=== PATIENT | female | born 1945 | race Caucasian/White ===

== ENCOUNTER 2020-05-29 07:19 | Emergency (ER) | payer MEDICARE, OTHER, SELFPAY ==
--- NOTE | ~2020-05-29 | CT_ITS ---
EXAMINATION: CT abdomen pelvis w con DATE: 05/29/2020 08:29 INDICATION: Area. Bloody stools. TECHNIQUE: Computed tomography (CT) of the abdomen and pelvis was performed with 100 mL Omnipaque-350 intravenous contrast. Automated exposure control and iterative reconstruction technique were employe d. The dose-length product was 1277.21 mGy-cm. COMPARISON: None FINDINGS: Minimal dependent atelectasis in the bilateral lower lobes as well as atelectasis in the left lower l obe along side the margins of a moderate-sized sliding-type hiatal hernia. There is wall thickening i n the distalmost esophagus consistent with likely reflux esophagitis. Heart size is normal. Small per icardial effusion. Liver, gallbladder, spleen, pancreas, bilateral adrenal glands and kidneys are nor mal. There is fluid throughout the colon and several loops of nondilated small bowel consistent with diarrhea. No abnormal bowel wall thickening or obstruction. The appendix is not visualized. No perice yony inflammatory change to suggest acute appendicitis. The uterus is not identified and has likely be en surgically resected. 2.9 cm left adnexal cyst. No free intraperitoneal gas or fluid. No pathologic ally enlarged abdominal or pelvic lymphadenopathy. Mild lumbar dextroscoliosis with severe spondylosi s. Old healed proximal left femoral fracture with antegrade intramedullary tracy and interlocking femor al neck screw fixation. IMPRESSION: 1. Fluid throughout the large and small bowel consistent with diarrhea without evident wall thickenin g or obstruction. Correlate clinically for gastroenteritis. 2. Moderate-sized sliding-type hiatal hernia with wall thickening the distal esophagus suggestive of reflux esophagitis. 3. Small pericardial effusion. Reviewed, dictated and finalized at location A. IMPRESSION: 1. Fluid throughout the large and small bowel consistent with diarrhea without evident wall thickening or obstruction. Correlate clinically for gastroenteriti s. 2. Moderate-sized sliding-type hiatal hernia with wall thickening the distal es ophagus suggestive of reflux esophagitis. 3. Small pericardial effusion.
[2020-05-29 07:19] VITALS: BP 142/98; PULSE 105; RESP 20; TEMP 36.9; O2SAT 100
--- NOTE | 2020-05-29 07:30 | ED.NAVMDI ---
HPI - Nausea/Vomiting/Diarrhea General Chief complaint: Nausea/Vomiting/Diarrhea Stated complaint: DIARRHEA History of Present Illness HPI Narrative: She reports abnormal stools for the past month. Both soft and hard stools. Diarrhea for about the past week. long term staff told her that she had some bright red blood in her stool last. She is not able to quantify. She does report some rectal pain/irritation from the frequent bowel movements. No abdominal pain, nausea, vomiting, fever, CP, SOB. She does not take any blood thinners. Related Data Home Medications Medication Instructions Recorded Confirmed acetaminophen 500 mg tablet 500 mg PO Q4H PRN 07/25/19 02/18/20 aspirin 81 mg tablet,delayed 81 mg PO DAILY 07/25/19 02/18/20 release buspirone 5 mg tablet 5 mg PO TID 07/25/19 02/18/20 calcium carbonate 500 mg (1,250 1 tablet PO BID 07/25/19 02/18/20 mg)-vitamin D3 125 unit tablet cholecalciferol (vitamin D3) 50 2,000 unit PO DAILY 07/25/19 02/18/20 mcg (2,000 unit) tablet diclofenac sodium 75 mg 75 mg PO BID 07/25/19 02/18/20 tablet,delayed release glucosamine-chondroitin 167 mg-133 cap PO 07/25/19 02/18/20 mg capsule mecobalamin (vitamin B12) 1,000 1,000 mcg SUBLINGUAL DAILY 07/25/19 02/18/20 mcg disintegrating tablet,sublingual pantoprazole 40 mg tablet,delayed 40 mg PO QAM 07/25/19 02/18/20 release raloxifene 60 mg tablet 60 mg PO DAILY 07/25/19 02/18/20 spironolactone 50 mg tablet 50 mg PO BID 07/25/19 02/18/20 bisacodyl 10 mg rectal suppository 10 mg RECTAL DAILY PRN 11/12/19 02/18/20 escitalopram oxalate 20 mg tablet 10 mg PO DAILY 11/12/19 02/18/20 ferrous sulfate 325 mg (65 mg 325 mg PO DAILY 11/12/19 02/18/20 iron) tablet lidocaine HCl 4 % topical cream 1 applic TOPICAL QID PRN 11/12/19 02/18/20 losartan 50 mg tablet 50 mg PO DAILY 11/12/19 02/18/20 menthol 4 % topical gel 1 applic TOPICAL TID PRN 11/12/19 02/18/20 polyethylene glycol 3350(bulk) each MISCELLANE 11/12/19 02/18/20 docusate sodium 100 mg capsule 100 mg PO DAILY 02/18/20 02/18/20 multivitamin 1 tablet PO DAILY 02/18/20 02/18/20 sennosides 8.6 mg tablet 8.6 mg PO BID 02/18/20 02/18/20 Allergies Allergy/AdvReac Type Severity Reaction Status Date / Time adhesive tape Allergy Severe BLISTER Verified 05/29/20 07:42 SKIN adhesive Allergy Unknown Erythema Verified 05/29/20 07:42 CYCLOBENZAPRINE HCL AdvReac Unknown CONFUSED, Uncoded 05/29/20 07:42 WEAK Review of Systems Review of Systems: All systems reviewed & are unremarkable except as noted in HPI and below Constitutional: Constitutional: Denies chills, Denies fever(s) and Denies weakness Cardiovascular: Cardiovascular: Denies chest pain Respiratory: Respiratory: Denies dyspnea Gastrointestinal: Gastrointestinal: Denies abdominal pain, Reports diarrhea, Denies nausea and Denies vomiting Musculoskeletal: Musculoskeletal: Denies back pain Neurologic: Denies numbness and Denies weakness PMFSH Past Medical History Medical History Abnormal finding of blood chemistry, unspecified Anxiety Benign essential hypertension Body mass index (BMI) 40.0-44.9, adult Chronic pain of right knee Encounter for Medicare annual wellness exam Encounter for routine adult health examination with abnormal findings Encounter for routine adult health examination without abnormal findings GERD (gastroesophageal reflux disease) Hearing loss Muscle weakness Obesity 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
[2020-05-29] MEDS: SODIUM CHLORIDE 0.9% IV 500 ML 999 ML IV CONT (07:43)
[2020-05-29 07:53] LABS: Basophils Percent Auto 0.3 % (0.2-1.2); Eosinophils Absolute Auto 0.1 K/mm3 (0-0.3); Eosinophils Percent Auto 1.3 % (0-4.4); Hematocrit 42.3 % (37.0-47.0); Hemoglobin 14.4 g/dL (12.0-15.0); Immature Granulocyte Absolute 0.03 K/mm3 (0.00-0.031); Immature Granulocyte Percent A 0.3 % (0-0.5); Lymphocytes Absolute Auto 0.71 K/mm3 (0.9-3.2); Lymphocytes Percent Auto 7.2 % (18.3-44.2); Mean Corpuscular Hemoglobin 32.8 pg (26-34); Mean Corpuscular Volume 96.4 fl (80-100); Mean Platelet Volume 10.8 fl (7.4-10.4); Monocytes Absolute Auto 0.8 K/mm3 (0.1-0.6); Monocytes Percent Auto 8.1 % (2.6-8.5); Neutrophils Absolute Auto 8.2 K/mm3 (1.3-6.7); Neutrophils Percent Auto 82.8 % (45.5-73.1); Platelet Count Result 225 k/mm3 (150-375); Red Blood Count 4.39 M/mm3 (4.2-5.4); Red Cell Distribution Width 12.2 % (11.5-14.5); White Blood Count 9.9 K/mm3 (4.5-10.0)
[2020-05-29 07:56] LABS: Add Urine Microscopic? YES; Appearance Urine Clear (Clear); Bacteria Urine 3+ /hpf; Bilirubin Urine Negative (Negative); Blood Urine Negative (Negative); Color Urine Yellow (Yellow); Glucose Urine UA Negative (Negative); Ketones Urine Negative (Negative); Leukocyte Esterase Ur Negative LEU/UL (Negative); Mucus Urine Rare /lpf; Nitrate Urine Positive (Negative); Protein Urine Negative (Negative); RBC Urine 0-2 /hpf (0-2); Specific Grav Ur 1.026 (1.001-1.035); Squamous Epithelial Cell Urine Rare /hpf (Few); Urobilinogen Urine Negative mg/dL (<2.0)
[2020-05-29 08:07] LABS: Alanine Aminotransferase 17 U/L (4-35); Albumin Level 4.4 g/dL (3.5-5.1); Alkaline Phosphatase 73 U/L (38-126); Anion Gap 8 mmol/L (8-16); Aspartate Amino Transferase 25 U/L (14-36); Bilirubin,Total 0.3 mg/dL (0.2-1.3); Blood Urea Nitrogen 20 mg/dL (7-17); Calcium 9.5 mg/dL (8.4-10.2); Carbon Dioxide 23 mmol/L (22-30); Chloride 107 mmol/L (98-107); Estimated CRCL calculation 71 ml/min; Estimated Glomerular Filt Rate > 60; Glucose 123 mg/dL (65-105); Lipase 43 U/L (23-300); Potassium 3.6 mmol/L (3.4-5.0); Sodium 138 mmol/L (137-145)
[2020-05-29 08:53] VITALS: BP 120/71; PULSE 92; RESP 15; O2SAT 95
[2020-05-29] MEDS: NITROFURANTOIN MONOHYD MACROCR 100 MG CAP PO (09:23)
[2020-05-29 09:52] VITALS: BP 128/87; PULSE 100; RESP 17; O2SAT 100
[2020-05-29 11:15] VITALS: BP 133/84; PULSE 92; RESP 15; O2SAT 96
[2020-05-29 12:17] VITALS: BP 128/87; PULSE 90; RESP 16; O2SAT 97
== END 2020-05-29 12:18 ==
PROVIDERS: Emergency Provider Emergency Medicine; PCP Internal Medicine
DX: R19.7 Diarrhea, unspecified (principal); N30.00 Acute cystitis without hematuria; K21.9 Gastro-esophageal reflux disease without esophagitis; I10 Essential (primary) hypertension; F41.9 Anxiety disorder, unspecified; M85.80 Other specified disorders of bone density and structure, unspecified site; Z79.82 Long term (current) use of aspirin
CPT/HCPCS: 36415; 51701; 74177; 80053; 81001; 83690; 85025; 86850; 86900; 86901; 96360; 99284; A9270; J7040; Q9967

== ENCOUNTER 2021-01-05 12:23 | Outpatient (CLI) | payer MEDICARE, OTHER, SELFPAY ==
[2021-01-05 13:08] LABS: Basophils Absolute Auto 0.1 K/mm3 (0.0-0.1); Basophils Percent Auto 0.8 % (0.2-1.2); Eosinophils Absolute Auto 0.1 K/mm3 (0-0.3); Eosinophils Percent Auto 1.8 % (0-4.4); Hematocrit 28.7 % (37.0-47.0); Immature Granulocyte Absolute 0.02 K/mm3 (0.00-0.031); Immature Granulocyte Percent A 0.3 % (0-0.5); Lymphocytes Absolute Auto 1.61 K/mm3 (0.9-3.2); Lymphocytes Percent Auto 24.2 % (18.3-44.2); Mean Corpuscular HGB Conc 31.4 g/dl (32-36); Mean Corpuscular Hemoglobin 32.3 pg (26-34); Mean Corpuscular Volume 102.9 fl (80-100); Mean Platelet Volume 9.5 fl (7.4-10.4); Monocytes Absolute Auto 0.6 K/mm3 (0.1-0.6); Monocytes Percent Auto 8.9 % (2.6-8.5); Neutrophils Absolute Auto 4.3 K/mm3 (1.3-6.7); Platelet Count Result 304 k/mm3 (150-375); Red Blood Count 2.79 M/mm3 (4.2-5.4); Red Cell Distribution Width 12.8 % (11.5-14.5); White Blood Count 6.7 K/mm3 (4.5-10.0)
[2021-01-05 13:21] LABS: Hemoglobin A1C 4.9 % (<5.7)
[2021-01-05 13:44] LABS: Alanine Aminotransferase 14 U/L (4-35); Albumin Level 3.7 g/dL (3.5-5.1); Alkaline Phosphatase 43 U/L (38-126); Anion Gap 5 mmol/L (8-16); Aspartate Amino Transferase 28 U/L (14-36); Bilirubin,Total 0.1 mg/dL (0.2-1.3); Blood Urea Nitrogen 21 mg/dL (7-17); Calcium 9.2 mg/dL (8.4-10.2); Carbon Dioxide 26 mmol/L (22-30); Chloride 106 mmol/L (98-107); Cholesterol 165 mg/dL (0-200); Estimated Glomerular Filt Rate > 60; Glucose 102 mg/dL (65-105); HDL Direct 54 mg/dL; Potassium 4.7 mmol/L (3.4-5.0); Sodium 137 mmol/L (137-145); Triglycerides 142 mg/dL (<150)
[2021-01-05 13:55] LABS: LDL Cholesterol Direct 87 mg/dL
[2021-01-05 14:13] LABS: Thyroid Stimulating Hormone 0.642 uIU/mL (0.465-4.680)
[2021-01-05 14:32] LABS: Free T4 Free Thyroxine 0.72 ng/mL (0.78-2.19)
[2021-01-05 14:49] LABS: Folic Acid > 20.0 ng/mL (2.76->20)
[2021-01-06 19:29] LABS: Iron 172 ug/dL (37-170)
[2021-01-06 19:38] LABS: Percent Iron Saturation 51 % (20-50)
[2021-01-08 19:40] LABS: Vitamin D 1,25 (OH)2 Total 31 pg/mL (18-72); Vitamin D2 1,25 (OH)2 <8 pg/mL; Vitamin D3 1,25 (OH)2 31 pg/mL
[2021-01-11 08:59] LABS: Triiodothyronine T3 Free 2.4 pg/mL (2.3-4.2)
== END 2021-01-05 12:24 | disposition home or self-care (01) ==
PROVIDERS: PCP Internal Medicine; Visit Provider Internal Medicine
DX: E55.9 Vitamin D deficiency, unspecified (principal); Z79.899 Other long term (current) drug therapy; E53.8 Deficiency of other specified B group vitamins; I10 Essential (primary) hypertension; D64.9 Anemia, unspecified; R94.6 Abnormal results of thyroid function studies
CPT/HCPCS: 36415; 80053; 80061; 82607; 82652; 82728; 82746; 83036; 83540; 83550; 84439; 84443; 84481; 85025

== ENCOUNTER 2021-01-19 01:57 | Day surgery (SDC) | payer MEDICARE, OTHER, SELFPAY ==
[2021-01-12 12:22] VITALS: BMI 44.5
--- NOTE | 2021-01-19 10:42 | WPDANESEPPF ---
Anes - Initial Pre Proc Eval Procedure: Operation Date: 01/19/21 11:45 Proposed Procedures p Esophagogastroduodenoscopy & Colonoscopy - Edgar Ricks MD Date/Time: 01/19/21 10:42 Surgeon: Edgar Ricks MD Pre Op Diagnosis: iron def anemia Patient Data Age: 75 Gender: F Height: 4 ft 11 in Weight: 100 kg Allergies Allergy/AdvReac Type Severity Reaction Status Date / Time adhesive tape Allergy Severe BLISTER Verified 01/05/21 11:34 SKIN adhesive Allergy Unknown Erythema Verified 01/05/21 11:34 Home Medications Medication Instructions Recorded Confirmed Type acetaminophen 500 mg tablet 1,000 mg PO BID 07/25/19 01/13/21 History aspirin 81 mg tablet,delayed 81 mg PO DAILY 07/25/19 01/13/21 History release cholecalciferol (vitamin D3) 50 2,000 unit PO DAILY 07/25/19 01/13/21 History mcg (2,000 unit) tablet glucosamine-chondroitin 167 mg-133 cap PO 07/25/19 01/05/21 History mg capsule mecobalamin (vitamin B12) 1,000 1,000 mcg SUBLINGUAL DAILY 07/25/19 01/13/21 History mcg disintegrating tablet,sublingual pantoprazole 40 mg tablet,delayed 40 mg PO QAM 07/25/19 01/13/21 History release raloxifene 60 mg tablet 60 mg PO DAILY 07/25/19 01/13/21 History losartan 50 mg tablet 50 mg PO DAILY 11/12/19 01/13/21 History polyethylene glycol 3350(bulk) each MISCELLANE 11/12/19 01/05/21 History docusate sodium 100 mg capsule 100 mg PO BID PRN 02/18/20 01/13/21 History multivitamin 1 tablet PO DAILY 02/18/20 01/13/21 History sennosides 8.6 mg tablet 8.6 mg PO BID PRN 02/18/20 01/13/21 History buspirone 5 mg tablet 5 mg PO BID tablet 08/25/20 01/13/21 History escitalopram oxalate 20 mg tablet 20 mg PO DAILY tablet 08/25/20 01/13/21 History spironolactone 50 mg tablet 50 mg PO DAILY tablet 08/25/20 01/13/21 History ferrous sulfate 325 mg (65 mg 325 mg PO DAILY #90 tablet 09/22/20 01/13/21 Rx iron) tablet mirabegron 50 mg tablet,extended 50 mg PO DAILY #90 tablet 01/05/21 01/13/21 Rx release 24 hr acetaminophen 650 mg PO Q4H PRN 01/13/21 01/13/21 History alprazolam 0.25 mg PO BID PRN 01/13/21 01/13/21 History benzonatate 100 mg PO Q6H PRN 01/13/21 01/13/21 History calcium carbonate-vitamin D3 1 tablet PO DAILY 01/13/21 01/13/21 History [Calcium 500 + D] menthol [Biofreeze (menthol)] 1 ea TOPICAL QID PRN 01/13/21 01/13/21 History ondansetron HCl [Zofran] 4 mg PO Q6H PRN 01/13/21 01/13/21 History Patient hx anesthesia problems: none Family hx anesthesia problems: none PMFSH Past Medical History Medical History (Updated 01/06/21 @ 09:56 by Yary Mckeon) Abnormal finding of blood chemistry, unspecified Abnormal thyroid function test Anemia Anxiety Benign essential hypertension Body mass index (BMI) 40.0-44.9, adult Chronic pain of right knee Dependent edema DJD (degenerative joint disease), multiple sites Encounter for examination for admission to assisted living facility Encounter for Medicare annual wellness exam Encounter for routine adult health examination with abnormal findings Encounter for routine adult health examination without abnormal findings GERD (gastroesophageal reflux disease) Hearing loss Muscle weakness Nocturia Obesity 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
--- NOTE | 2021-01-19 10:47 | WPDGICN ---
Assessment and Plan Assessment and plan (1) Anemia: Code(s): D64.9 - Anemia, unspecified Status: Acute Assessment and Plan: Patient with anemia that is new found on routine screening exam. Plan is for colonoscopy an EGD to assess for possible GI blood loss. Patient has a distant history of a diminutive colon polyp and has been treated for acid reflux in the past. Patient has been on chronic iron replacement for per apparent iron deficiency anemia in the past. (2) GERD (gastroesophageal reflux disease): Qualifiers: Esophagitis presence: esophagitis presence not specified Qualified Code(s): K21.9 - Gastro-esophageal reflux disease without esophagitis Code(s): K21.9 - Gastro-esophageal reflux disease without esophagitis Status: Acute Assessment and Plan: GE reflux appears stable currently denies heartburn. Will assess at time of endoscopy. (3) Vitamin B12 deficiency: Code(s): E53.8 - Deficiency of other specified B group vitamins Status: Acute Assessment and Plan: Macrocytic anemia identified. Low B12 evident she is now on B12 replacement. GI Consult Note Consult date/time: 01/19/21 10:47 HPI: Hoa Luis is a 75 year old female Seen in evaluation at the request of Dr. Peace. patient has a longstanding history of anemia. Apparently has been iron deficient in the past which she is on iron replacement. Routine screening reveals once again she is anemic. Recently identified with B12 deficiency she now has a macrocytic anemia. . In the past was told that she had iron deficiency. She has had no recent obvious blood loss. She is on chronic iron replacement. She presents today for follow-up colonoscopy an EGD to assess for causes of anemia. In the past she had a colonoscopy with a diminutive polyp removed. Her family history is noncontributory. Patient denies any obvious signs of bleeding. Currently resides in assisted living she has decreased mobility because of knee problems. She has had some recent depression with the of her son related to leukemia. Review of Systems Review of Systems: All systems reviewed & are unremarkable except as noted in HPI and below [facility] Past Medical History Medical History (Updated 01/06/21 @ 09:56 by Yary Mckeon) Abnormal finding of blood chemistry, unspecified Abnormal thyroid function test Anemia Anxiety Benign essential hypertension Body mass index (BMI) 40.0-44.9, adult Chronic pain of right knee Dependent edema DJD (degenerative joint disease), multiple sites Encounter for examination for admission to assisted living facility Encounter for Medicare annual wellness exam Encounter for routine adult health examination with abnormal findings Encounter for routine adult health examination without abnormal findings GERD (gastroesophageal reflux disease) Hearing loss Muscle weakness Nocturia Obesity On correction drug therapy Osteopenia Patellar tendon rupture Pedal edema RBBB (right bundle branch block) Right knee pain Rotator cuff injury Urinary urgency Vitamin B12 deficiency Vitamin D deficiency Surgical History Surgical History History of total right knee replacement Hx of excision of lamina of cervical vertebra for decompression of spinal cord Family History Family History Other Diabetes mellitus Family history of malignant neoplasm Social History Social History Smoking status: Never smoker Alcohol intake: current Substance use: never Substance use type: does not use Living arrangements: assisted living Gender identity (if verbalized by the patient): Female Spiritual care concerns: No Meds Home Medications and Allergies Home Medications Medication Instructions Recorded Confirmed Type nicolasa
[2021-01-19] MEDS: LACTATED RINGERS 1,000 ML 150 ML IV CONT (10:51)
[2021-01-19 10:53] VITALS: BP 167/82; PULSE 94; RESP 20; TEMP 36.1; O2SAT 100; BMI 44.5
[2021-01-19 11:28] VITALS: BP 105/59; PULSE 88; RESP 20; O2SAT 100
[2021-01-19 11:38] VITALS: BP 107/58; PULSE 91; RESP 20; O2SAT 100
== END 2021-01-19 12:17 | disposition home or self-care (01) ==
PROVIDERS: PCP Internal Medicine; Visit Provider Internal Medicine Gastroenterology
PROC: 0DJ08ZZ Inspection of Upper Intestinal Tract, Via Natural or Artificial Opening Endoscopic (ICD-10-PCS; CPT 43235; principal; 2021-01-19 11:45)
DX: Z12.11 Encounter for screening for malignant neoplasm of colon (principal); D64.9 Anemia, unspecified; K64.8 Other hemorrhoids; K44.9 Diaphragmatic hernia without obstruction or gangrene; K21.9 Gastro-esophageal reflux disease without esophagitis; Z79.82 Long term (current) use of aspirin; F41.9 Anxiety disorder, unspecified; I10 Essential (primary) hypertension; E55.9 Vitamin D deficiency, unspecified; E53.8 Deficiency of other specified B group vitamins; E66.01 Morbid (severe) obesity due to excess calories; Z68.41 Body mass index [BMI] 40.0-44.9, adult
CPT/HCPCS: 43235; G0121; J7120

== ENCOUNTER 2021-03-02 11:42 | Outpatient (CLI) | payer MEDICARE, OTHER, SELFPAY ==
[2021-03-02 12:00] LABS: Basophils Percent Auto 0.7 % (0.2-1.2); Eosinophils Absolute Auto 0.1 K/mm3 (0-0.3); Eosinophils Percent Auto 2.4 % (0-4.4); Hematocrit 23.1 % (37.0-47.0); Immature Granulocyte Absolute 0.02 K/mm3 (0.00-0.031); Immature Granulocyte Percent A 0.3 % (0-0.5); Lymphocytes Absolute Auto 1.04 K/mm3 (0.9-3.2); Lymphocytes Percent Auto 17.8 % (18.3-44.2); Mean Corpuscular HGB Conc 28.1 g/dl (32-36); Mean Corpuscular Hemoglobin 25.6 pg (26-34); Mean Corpuscular Volume 90.9 fl (80-100); Mean Platelet Volume 9.7 fl (7.4-10.4); Monocytes Absolute Auto 0.5 K/mm3 (0.1-0.6); Monocytes Percent Auto 8.7 % (2.6-8.5); Neutrophils Absolute Auto 4.1 K/mm3 (1.3-6.7); Neutrophils Percent Auto 70.1 % (45.5-73.1); Platelet Count Result 314 k/mm3 (150-375); Red Blood Count 2.54 M/mm3 (4.2-5.4); Red Cell Distribution Width 14.7 % (11.5-14.5); White Blood Count 5.9 K/mm3 (4.5-10.0)
[2021-03-02 12:10] LABS: Alanine Aminotransferase 14 U/L (4-35); Albumin Level 4.1 g/dL (3.5-5.1); Alkaline Phosphatase 49 U/L (38-126); Anion Gap 10 mmol/L (8-16); Aspartate Amino Transferase 28 U/L (14-36); Bilirubin,Total 0.1 mg/dL (0.2-1.3); Blood Urea Nitrogen 17 mg/dL (7-17); Calcium 8.9 mg/dL (8.4-10.2); Carbon Dioxide 24 mmol/L (22-30); Chloride 106 mmol/L (98-107); Estimated Glomerular Filt Rate > 60; Glucose 107 mg/dL (65-105); Potassium 4.3 mmol/L (3.4-5.0); Sodium 140 mmol/L (137-145)
[2021-03-02 12:13] LABS: Anisocytosis 2+ (NORMAL); Platelet Estimate Adequate (Adequate); Tear Drop Cells 1+ (NORMAL)
[2021-03-02 12:14] LABS: Hypochromasia 2+ (NORMAL); Stomatocytes 1+ (NORMAL)
[2021-03-02 12:24] LABS: Hemoglobin 6.5 g/dL (12.0-15.0)
== END 2021-03-02 11:43 | disposition home or self-care (01) ==
PROVIDERS: PCP Internal Medicine; Visit Provider Internal Medicine
DX: R53.83 Other fatigue (principal)
CPT/HCPCS: 36415; 80053; 85025

== ENCOUNTER 2021-03-02 12:33 | Observation (INO) | payer MEDICARE, OTHER, SELFPAY ==
[2021-03-02] VITALS (10 sets, daily range): BP systolic 106–129; BP diastolic 43–81; PULSE 88–95; RESP 16–24; TEMP 36.3–36.8; O2SAT 97–100; BMI 46.6
--- NOTE | ~2021-03-02 | US_ITS ---
EXAMINATION:US venous doppler LE BI INDICATION:Leg edema TECHNIQUE: Multiple grayscale, color flow and Doppler images of the right and left lower extremity de ep venous systems were obtained and reviewed. COMPARISON:05/23/2018 FINDINGS: The common femoral, superficial femoral and popliteal veins demonstrate normal respiratory variation, augmentation and compressibility. Color flow is also seen within the posterior tibial, pe roneal, greater saphenous and profunda veins. IMPRESSION: 1: No lower extremity deep venous thrombosis. Reviewed, dictated and finalized at location B.
--- NOTE | 2021-03-02 14:23 | ED.GENADULT ---
HPI - General Adult General Chief complaint: Recheck/Abnormal Lab/Rx Stated complaint: blood transfusion Time Seen by Provider: 03/02/21 13:52 Source: patient History of Present Illness HPI narrative: Patient is a 75 y/o female complaining of anemia. She states she had labs drawn earlier today and she was told by her doctor that her hemoglobin was 6.2 and she needs to come here for transfusion. There is no known alleviating or exacerbating factor. She has been feeling tired for a while. She denies any bleeding. She denies any blood in stool or vomiting blood. She has dark stool which she attributed to Iron pill. She also had recent EGD and colonoscopy. She states that she has been wheelchair bound for last 2 years prior to this recent problem. Related Data Home Medications Medication Instructions Recorded Confirmed acetaminophen 500 mg tablet 1,000 mg PO BID 07/25/19 03/02/21 aspirin 81 mg tablet,delayed 81 mg PO DAILY 07/25/19 03/02/21 release cholecalciferol (vitamin D3) 50 2,000 unit PO DAILY 07/25/19 03/02/21 mcg (2,000 unit) tablet mecobalamin (vitamin B12) 1,000 1,000 mcg SUBLINGUAL DAILY 07/25/19 03/02/21 mcg disintegrating tablet,sublingual pantoprazole 40 mg tablet,delayed 40 mg PO QAM 07/25/19 03/02/21 release raloxifene 60 mg tablet 60 mg PO DAILY 07/25/19 03/02/21 losartan 50 mg tablet 50 mg PO DAILY 11/12/19 03/02/21 docusate sodium 100 mg capsule 100 mg PO BID PRN 02/18/20 03/02/21 multivitamin 1 tablet PO DAILY 02/18/20 03/02/21 sennosides 8.6 mg tablet 8.6 mg PO BID PRN 02/18/20 03/02/21 buspirone 5 mg tablet 5 mg PO BID tablet 08/25/20 03/02/21 escitalopram oxalate 20 mg tablet 20 mg PO DAILY tablet 08/25/20 03/02/21 spironolactone 50 mg tablet 50 mg PO DAILY tablet 08/25/20 03/02/21 acetaminophen 650 mg PO Q4H PRN 01/13/21 03/02/21 alprazolam 0.25 mg PO BID PRN 01/13/21 03/02/21 calcium carbonate-vitamin D3 1 tablet PO DAILY 01/13/21 03/02/21 [Calcium 500 + D] menthol [Biofreeze (menthol)] 1 ea TOPICAL QID PRN 01/13/21 03/02/21 ondansetron HCl [Zofran] 4 mg PO Q6H PRN 01/13/21 03/02/21 Allergies Allergy/AdvReac Type Severity Reaction Status Date / Time adhesive tape Allergy Severe BLISTER Verified 03/02/21 11:03 SKIN adhesive Allergy Unknown Erythema Verified 03/02/21 11:03 Review of Systems Constitutional: Constitutional: Denies chills, Reports fatigue, Denies fever(s), Denies headache(s) and Reports weakness Eyes: Eyes: Denies blurry vision ENT: Denies headache(s) and Denies neck pain Cardiovascular: Cardiovascular: Denies chest pain and Denies dyspnea Respiratory: Respiratory: Denies cough and Denies dyspnea Gastrointestinal: Gastrointestinal: Denies abdominal pain, Denies diarrhea, Denies nausea and Denies vomiting Genitourinary: Genitourinary: Denies hematuria and Denies dysuria Musculoskeletal: Musculoskeletal: Denies back pain and Denies neck pain Neurologic: Denies headache(s) and Reports weakness PMFSH Past Medical History Medical History Abnormal finding of blood chemistry, unspecified Abnormal thyroid function test Anemia Anxiety Benign essential hypertension Body mass index (BMI) 40.0-44.9, adult Chronic pain of right knee Dependent edema DJD (degenerative joint disease), multiple sites Encounter for examination for admission to assisted living facility Encounter for Medicare annual wellness exam Encounter for routine adult health examination with abnormal findings Encounter for routine adult health examination without abnormal findings GERD (gastroesophageal reflux disease) Hearing loss Hypersomnolence Muscle weakness Nocturia Obesity 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
[2021-03-02 14:39] LABS: Immature Reticulocyte Fraction 28.9 % (3.0-15.9); Reticulocyte Hemoglobin Conten 17.9 pg (28.2-35.7); Reticulocyte Percent 4.68 % (0.7-4.3); Reticulocytes Absolute 0.12 B/L (32.2-175.7)
[2021-03-02 16:58] LABS: Folic Acid > 20.0 ng/mL (2.76->20)
[2021-03-02 17:12] LABS: Iron 14 ug/dL (37-170)
[2021-03-02 17:21] LABS: Percent Iron Saturation 4 % (20-50)
--- NOTE | 2021-03-02 18:22 | ADMGEN ---
This patient, Hoa Luis, was admitted to 3 Med Surg Room 300-01 at 1615. Patient/family oriented to hospital policies and general routines including ID bracelet, bed and alarms, visiting hours, pain management, procedures, bathroom and other care routines, personal items, smoking policy, room service/diet, and visiting hours. Information on how to activate the Rapid Response Team has been discussed. Patient/Family are encouraged to report perceived risks to care and to ask questions if they do not understand what they are told or what they should do.
--- NOTE | 2021-03-02 21:12 | PM.IMHP ---
H&P: HPI History of Present Illness Date/Time: 03/02/21 21:12 this is a 75 year old female patient who resides at [facility]. She does have a history of anemia. She did have her labs drawn earlier today and she was told by her primary care doctor that hemoglobin was 6.2 and she needed to come in for transfusion. The patient is not on any blood thinners but does take an aspirin daily. She has no nausea vomiting or diarrhea. The patient takes iron so she stated that her stools have always been dark from her iron tablets. She has had a EGD and colonoscopy back in january of this year and it was reported that the patient had some internal hemorrhoids and they were not actively bleeding at that time. Her EGD showed a hiatal hernia back in January of this year. The patient stated she really has not had any problems since she has just felt extremely fatigued. The patient is wheelchair-bound and does not have the energy to get into her wheelchair. She denies any chest pain or shortness of breath. Her hemoglobin was reported as 6.5 today. Previous hemoglobin on was a 9.0. The patient currently is getting 1 unit packed red blood cells. We will repeat her H&H 1 hour after the transfuse has completed. She has no nausea vomiting or abdominal pain. Platelet counts normal. The patient is being admitted to observation services on the date of service 03/02/2021. Chief Complaint: Fatigue and severe anemia Review of Systems Review of Systems: All systems reviewed & are unremarkable except as noted in HPI and below Constitutional: Constitutional: Reports as per HPI and Reports no additional constitutional complaints Eyes: Eyes: Reports as per HPI and Reports no additional eye complaints ENT: Reports system reviewed and no additional complaints, except as documented and Reports Normal hearing present Cardiovascular: Cardiovascular: Reports no additional cardiovascular complaints Respiratory: Respiratory: Reports no additional respiratory complaints and Reports no additional respiratory complaints Gastrointestinal: Gastrointestinal: Reports as per HPI and Reports no additional gastrointestinal complaints Musculoskeletal: Musculoskeletal: Reports no additional musculoskeletal complaints Integumentary/Breasts: Skin/Breast: Reports system reviewed and no additional complaints, except as docu and Reports as per HPI Neurologic: Reports system reviewed and no additional complaints, except as documented, Reports as per HPI and Reports Normal hearing present Psychiatric: Psychiatric: Reports no additional psychiatric complaints and Reports as per HPI Endocrine: Endocrine: Reports no additional endocrine complaints Hematologic/Lymphatic: Hematologic/Lymphatic: Reports no additional hematologic/lymphatic complaints Allergic/Immunologic: Allergic/Immunologic: Reports no additional allergic/immunologic complaints [facility] Past Medical History Medical History (Updated 03/02/21 @ 21:22 by Dalrene Salomon NP) Abnormal finding of blood chemistry, unspecified Abnormal thyroid function test Anemia Anxiety Benign essential hypertension Body mass index (BMI) 40.0-44.9, adult Chronic pain of right knee Closed hip fracture requiring operative repair Left femur Dependent edema Depression DJD (degenerative joint disease), multiple sites Encounter for examination for admission to assisted living facility Encounter for Medicare annual wellness exam Encounter for routine adult health examination with abnormal findings Encounter for routine adult health examination without abnormal findings GERD (gastroesophageal reflux disease) Hearing loss Hypersomnolence Muscle weakness Nocturia Obesity 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
[2021-03-02] MEDS: busPIRone HCL 5 MG TABLET PO (21:58)
[2021-03-02 22:00] LABS: Hematocrit 24.5 % (37.0-47.0); Hemoglobin 7.4 g/dL (12.0-15.0)
[2021-03-03 03:51] LABS: Basophils Percent Auto 0.7 % (0.2-1.2); Eosinophils Absolute Auto 0.3 K/mm3 (0-0.3); Eosinophils Percent Auto 4.1 % (0-4.4); Hematocrit 23.4 % (37.0-47.0); Hemoglobin 7.2 g/dL (12.0-15.0); Immature Granulocyte Absolute 0.02 K/mm3 (0.00-0.031); Immature Granulocyte Percent A 0.3 % (0-0.5); Lymphocytes Absolute Auto 1.65 K/mm3 (0.9-3.2); Mean Corpuscular HGB Conc 30.8 g/dl (32-36); Mean Corpuscular Hemoglobin 27.2 pg (26-34); Mean Corpuscular Volume 88.3 fl (80-100); Mean Platelet Volume 9.9 fl (7.4-10.4); Monocytes Absolute Auto 0.5 K/mm3 (0.1-0.6); Monocytes Percent Auto 8.7 % (2.6-8.5); Neutrophils Absolute Auto 3.6 K/mm3 (1.3-6.7); Neutrophils Percent Auto 59.2 % (45.5-73.1); Platelet Count Result 296 k/mm3 (150-375); Red Blood Count 2.65 M/mm3 (4.2-5.4); Red Cell Distribution Width 14.4 % (11.5-14.5); White Blood Count 6.1 K/mm3 (4.5-10.0)
[2021-03-03 05:43] VITALS: BP 121/72; PULSE 93; RESP 18; TEMP 36.3; O2SAT 95
[2021-03-03] MEDS: ACETAMINOPHEN 500 MG TABLET 1000 MG PO ×2 (08:47→16:30)
[2021-03-03] MEDS: busPIRone HCL 5 MG TABLET PO ×2 (08:48→16:30)
[2021-03-03] MEDS: ESCITALOPRAM OXALATE 10 MG TABLET 20 MG PO (08:48)
[2021-03-03] MEDS: CYANOCOBALAMIN 1,000 MCG TABLET 1000 MCG PO (08:48)
[2021-03-03] MEDS: CHOLECALCIFEROL 1,000 UNITS TABLET 2000 UNITS PO (08:48)
[2021-03-03] MEDS: RALOXIFENE HCL (*CHEMO) 60 MG TABLET PO (08:49)
[2021-03-03] MEDS: SPIRONOLACTONE 50 MG TABLET PO (08:49)
[2021-03-03] MEDS: MULTIVITAMINS THERAPEUTIC TAB (*BKC) 1 TABLET PO (08:49)
[2021-03-03] MEDS: LOSARTAN POTASSIUM 50 MG TABLET PO (08:49)
[2021-03-03] MEDS: FERROUS SULFATE 324 MG TABLET PO (08:49)
[2021-03-03 09:30] LABS: Hematocrit 26.4 % (37.0-47.0); Hemoglobin 8.2 g/dL (12.0-15.0)
[2021-03-03 10:37] LABS: Alanine Aminotransferase 12 U/L (4-35); Albumin Level 3.1 g/dL (3.5-5.1); Alkaline Phosphatase 43 U/L (38-126); Anion Gap 5 mmol/L (8-16); Aspartate Amino Transferase 23 U/L (14-36); Bilirubin,Total 0.3 mg/dL (0.2-1.3); Blood Urea Nitrogen 14 mg/dL (7-17); Calcium 8.9 mg/dL (8.4-10.2); Carbon Dioxide 24 mmol/L (22-30); Chloride 109 mmol/L (98-107); Estimated Glomerular Filt Rate > 60; Glucose 91 mg/dL (65-105); Magnesium 1.9 mg/dL (1.6-2.3); Potassium 3.9 mmol/L (3.4-5.0); Sodium 138 mmol/L (137-145)
[2021-03-03 14:00] VITALS: BP 139/86; PULSE 91; RESP 18; TEMP 36.2; O2SAT 98
--- NOTE | 2021-03-03 14:34 | PM.IMPN ---
Progress Note: A&P Assessment and Plan (1) Severe anemia: Code(s): D64.9 - Anemia, unspecified Status: Acute Assessment and Plan: Hemoglobin at presentation was 6.5. Hemoglobin 2 months earlier was 9.0. EGD and colonoscopy January 2021 which only showed small internal hemorrhoids without bleeding. Iron panel reviewed and appears consistent with iron deficiency anemia. B12 and folate within normal limits. She received 1 unit PRBC on 03/02/21 Continue to trend hemoglobin every 6 hours to ensure remaining stable. Continue pantoprazole. Aspirin is on hold Dr. Aguiar (hematology) has been consulted. Input is appreciated. Continue oral iron supplementation. Consider IV iron infusion but will await further recommendations from Hematology. (2) Pedal edema: Code(s): R60.0 - Localized edema Status: Acute Assessment and Plan: She has 1+ edema of her bilateral lower extremities. Venous Dopplers negative for DVT. Resume ROSALIO hose which she typically wears at home Elevate extremities Continue spironolactone (3) Anxiety: Code(s): F41.9 - Anxiety disorder, unspecified Status: Acute Assessment and Plan: Mood is stable at this time. Continue home buspirone with low-dose alprazolam as needed (4) GERD (gastroesophageal reflux disease): Qualifiers: Esophagitis presence: esophagitis presence not specified Qualified Code(s): K21.9 - Gastro-esophageal reflux disease without esophagitis Code(s): K21.9 - Gastro-esophageal reflux disease without esophagitis Status: Acute Assessment and Plan: No acute issues. Continue Protonix (5) Benign essential hypertension: Code(s): I10 - Essential (primary) hypertension Status: Acute Assessment and Plan: Blood pressure reviewed and have been well controlled. Last BP 121/72. Continue home losartan and spironolactone Subjective Date/time seen: 03/03/21 14:34 Interval history: Date of service: 03/03/2021 Hoa Luis is a 75-year-old female with history of anemia, hypertension, GERD, anxiety who is seen in follow-up for anemia. Overall, she feels weak and tired but reports feeling better today. She denies dizziness or lightheadedness. No shortness of breath. No chest pain or palpitations. She felt a little shaky this morning but this went away after she ate her breakfast. She has been tolerating her diet well. Denies hematuria, hematochezia, melena, hematemesis. No headache or body aches. Denies abdominal pain. No dysphagia. She tells me that she is wheelchair-bound or requires a Honorio lift to get up. Review of Systems Review of Systems: All systems reviewed & are unremarkable except as noted in HPI and below Exam Narrative: Exam Narrative: Ms. Luis is a well-nourished, well-appearing 75-year-old female who is lying supine in bed. She appears comfortable and is in NARD. Neuro: awake, alert and oriented x4, speech clear, no focal neuro deficits noted HEENMT: normocephalic, atraumatic, EOMI, sclerae anicteric, moist oral mucosa Neck: supple, no lymphadenopathy Respiratory: clear to auscultation bilaterally, nonlabored breathing Cardio: regular rate, regular rhythm with S1-S2 Abdomen: nondistended, normoactive bowel sounds, soft, nontender to palpation Extremities: 1+ edema of bilateral lower extremities erythema, nontender to palpation, DP pulses 2+ bilaterally Skin: no rashes or lesions, warm and dry Psych: appropriate mood and affect, judgment and insight intact Objective Data Vital Signs Vital Signs: Vital Signs - 24 hr 03/02/21 15:55 03/02/21 16:15 03/02/21 17:48 Temperature 97.5 F L 97.4 F L Pulse Rate 91 90 90 Respiratory Rate 22 H 20 20 Blood Pressure 127/78 120/66 127/74 Pulse Oximetry 100 100 98 03/02/21 18:04 03/02/21 19:04 03/02/21 20:04 Temperature 97.7 F 98.0 F 97.7 F Pulse Rate 90 93 88 Respiratory Rate 20 24 H 2
[2021-03-03 15:52] LABS: Hematocrit 25.7 % (37.0-47.0); Hemoglobin 7.6 g/dL (12.0-15.0)
[2021-03-03 18:53] LABS: Hematocrit 26.6 % (37.0-47.0); Hemoglobin 8.1 g/dL (12.0-15.0)
[2021-03-03 21:43] VITALS: BP 121/59; PULSE 82; RESP 20; TEMP 36.6; O2SAT 97
[2021-03-04 06:00] VITALS: BP 120/56; PULSE 84; RESP 20; TEMP 36.9; O2SAT 96
[2021-03-04 06:07] LABS: Hematocrit 26.1 % (37.0-47.0); Hemoglobin 7.6 g/dL (12.0-15.0); Mean Corpuscular HGB Conc 29.1 g/dl (32-36); Mean Corpuscular Hemoglobin 26.3 pg (26-34); Mean Corpuscular Volume 90.3 fl (80-100); Platelet Count Result 301 k/mm3 (150-375); Red Blood Count 2.89 M/mm3 (4.2-5.4); Red Cell Distribution Width 14.6 % (11.5-14.5); White Blood Count 4.9 K/mm3 (4.5-10.0)
[2021-03-04 06:22] LABS: Anion Gap 5 mmol/L (8-16); Blood Urea Nitrogen 11 mg/dL (7-17); Calcium 9.1 mg/dL (8.4-10.2); Carbon Dioxide 26 mmol/L (22-30); Chloride 108 mmol/L (98-107); Estimated Glomerular Filt Rate > 60; Glucose 97 mg/dL (65-105); Potassium 3.8 mmol/L (3.4-5.0); Sodium 139 mmol/L (137-145)
[2021-03-04] MEDS: ACETAMINOPHEN 500 MG TABLET 1000 MG PO (08:50)
[2021-03-04] MEDS: CHOLECALCIFEROL 1,000 UNITS TABLET 2000 UNITS PO (08:51)
[2021-03-04] MEDS: busPIRone HCL 5 MG TABLET PO (08:51)
[2021-03-04] MEDS: CYANOCOBALAMIN 1,000 MCG TABLET 1000 MCG PO (08:51)
[2021-03-04] MEDS: ESCITALOPRAM OXALATE 10 MG TABLET 20 MG PO (08:51)
[2021-03-04] MEDS: FERROUS SULFATE 324 MG TABLET PO (08:52)
[2021-03-04] MEDS: LOSARTAN POTASSIUM 50 MG TABLET PO (08:52)
[2021-03-04] MEDS: MULTIVITAMINS THERAPEUTIC TAB (*BKC) 1 TABLET PO (08:52)
[2021-03-04] MEDS: SPIRONOLACTONE 50 MG TABLET PO (08:53)
[2021-03-04] MEDS: PANTOPRAZOLE 40 MG TABLET PO (08:53)
[2021-03-04] MEDS: RALOXIFENE HCL (*CHEMO) 60 MG TABLET PO (08:53)
[2021-03-04 11:57] LABS: Hematocrit 26.9 % (37.0-47.0); Hemoglobin 8.2 g/dL (12.0-15.0)
[2021-03-04] MEDS: IRON SUCROSE COMPLEX 500 MG in SODIUM CHLORIDE 0.9% IV 250 ML 78.57 MG IVPB (12:39)
[2021-03-04 14:00] VITALS: BP 117/64; PULSE 90; RESP 14; TEMP 36.5; O2SAT 96
--- NOTE | 2021-03-04 17:35 | PM.DS ---
DS: Admitting Diagnosis Admitting Diagnosis Admitting Diagnosis: Anemia DS: Discharge Diagnosis Discharge Diagnosis (1) Severe anemia: Code(s): D64.9 - Anemia, unspecified Status: Acute Assessment and Plan: Hemoglobin at presentation was 6.5. Hemoglobin 2 months earlier was 9.0. EGD and colonoscopy done in January 2021 which only showed small internal hemorrhoids without bleeding. Iron panel reviewed and appears consistent with iron deficiency anemia. B12 and folate within normal limits. She received 1 unit PRBC on 03/02/21 and was seen in consultation by Dr. Aguiar (hematology). H&H stabilized following transfusion. She received IV Venofer and will continue PO iron supplementation, which was increased to BID. She will obtain repeat H&H and follow up with Dr. Aguiar. Hold aspirin until follow up per hematology recommendations. (2) Pedal edema: Code(s): R60.0 - Localized edema Status: Acute Assessment and Plan: She has 1+ edema of her bilateral lower extremities. Venous Dopplers negative for DVT. Continue ROSALIO hose and elevate extremities. Continue spironolactone. (3) Anxiety: Code(s): F41.9 - Anxiety disorder, unspecified Status: Acute Assessment and Plan: Mood is stable. Continue home buspirone with low-dose alprazolam as needed (4) GERD (gastroesophageal reflux disease): Qualifiers: Esophagitis presence: esophagitis presence not specified Qualified Code(s): K21.9 - Gastro-esophageal reflux disease without esophagitis Code(s): K21.9 - Gastro-esophageal reflux disease without esophagitis Status: Acute Assessment and Plan: No acute issues. Continue Protonix (5) Benign essential hypertension: Code(s): I10 - Essential (primary) hypertension Status: Acute Assessment and Plan: Blood pressure reviewed and was well controlled. Continue home losartan and spironolactone DS: Summary Hospital Course Reason for hospitalization: Anemia Hospital Course: Date of admission: 03/02/21 Date of discharge: 03/04/21 Hoa Luis is a 75 year old female with a history of anemia, hypertension, GERD, and anxiety who presented to the emergency department on 03/02/21 with complaints of feeling fatigued. She had outpatient labs done earlier in the day and was instructed to go to the ED for a blood transfusion. Upon presentation, her vital signs were stable, hemoglobin 6.5, hematocrit 23.1, platelets 314, electrolytes stable. She was admitted to the hospitalist service and seen in consultation by hematology. Please see above for further details. She was transfused 1 unit of blood and her H&H remained stable following. There was no evidence to suggest GI bleeding or any other bleeding. She received IV iron infusion and will follow up with hematology as an outpatient. She was feeling much better and requested discharge home. Given her overall improvement, she was determined to no longer require inpatient care and was felt to be stable for discharge. We discussed worrrisome signs and symptoms for which to return and she was educated on her medications. She was discharged in hemodynamically stable condition on 03/04/21. Status at Discharge Functional status at discharge: wheelchair bound Overall status at discharge: patient is progressing back to baseline Time Spent with Patient Time attestation: Total time spent providing and/or coordinating discharge services: 45 minutes Time spent: Greater than 30 minutes Exam Narrative: Exam Narrative: Ms. Luis is a well-nourished, well-appearing 75-year-old female who is lying supine in bed. She appears comfortable and is in NARD. Neuro: awake, alert and oriented x4, speech clear, no focal neuro deficits noted HEENMT: normocephalic, atraumatic, EOMI, sclerae anicteric, moist oral mucosa Neck: supple, no lymphadenopathy Respiratory: clear to auscultation bilaterally, nonlabored breathing Cardio: regul
--- NOTE | 2021-03-04 18:04 | PDONCCN ---
HPI - Date of Consult Date/Time: 03/04/21 18:04 Requesting Physician: Mercy Petty PA-C Primary Care Provider: John Peace MD - Consult Narrative Reason for consult: Iron deficiency anemia Narrative: Hoa Luis is a 75 year old female the [facility] resident for last 3 years duration status post bilateral knee surgery. She was admitted to the hospital with tiredness and fatigue and found to have hemoglobin of 6.2. She denies any melena hematochezia. She has been eating well. Patient denies being a vegetarian. Denies any recent weight loss. Patient had EGD done in January of 2021 that showed hiatal hernia. Colonoscopy also done in January of 2021 that showed internal hemorrhoids without any active bleeding. Patient received 1 unit of packed red on March 02. She is feeling better and ready to be discharged to assisted living. Review of Systems - Review of Systems All systems reviewed & are unremarkable except as noted in HPI and bel - Neurologic Reports system reviewed and no additional complaints, except as documented, Reports hearing normal, Reports weakness, Denies headache(s) [facility] Medical History: Medical History (Last Updated 03/02/21 @ 21:22 by Darlene Salomon NP) Abnormal finding of blood chemistry, unspecified Abnormal thyroid function test Anemia Anxiety Benign essential hypertension Body mass index (BMI) 40.0-44.9, adult Chronic pain of right knee Closed hip fracture requiring operative repair Left femur Dependent edema Depression DJD (degenerative joint disease), multiple sites Encounter for examination for admission to assisted living facility Encounter for Medicare annual wellness exam Encounter for routine adult health examination with abnormal findings Encounter for routine adult health examination without abnormal findings GERD (gastroesophageal reflux disease) Hearing loss Hypersomnolence Muscle weakness Nocturia Obesity On halfway drug therapy Osteopenia Patellar tendon rupture Pedal edema RBBB (right bundle branch block) Right knee pain Rotator cuff injury Tibia fracture Pinning of right tibia Urinary urgency Vitamin B12 deficiency Vitamin D deficiency Surgical History: Surgical History (Last Updated 03/02/21 @ 21:23 by Darlene Salomon NP) H/O breast biopsy H/O carpal tunnel repair Bilat H/O parathyroidectomy H/O: hysterectomy History of ankle surgery Right ankle fusion History of bladder surgery History of tonsillectomy History of total right knee replacement That was April of last year and patient continued to have difficulty in June of last year she was found have a tendon rupture which was repaired and it ruptured again. Patient is wheelchair-bound now. Hx of excision of lamina of cervical vertebra for decompression of spinal cord Family History: Family History (Last Reviewed 03/02/21 @ 18:19 by Erica Osborne RN) Other Diabetes mellitus Family history of malignant neoplasm - Social History Social History: Social History (Last Updated 03/02/21 @ 21:24 by Darlene Salomon NP) Gender Identity: Gender identity (if verbalized by the patient): Female Alcohol Use: Alcohol intake: former Substance Use: Substance use: never Substance use type: does not use Others: Spiritual care concerns: No Smoking Status: Smoking status: Never smoker Meds Home Medications Medication Instructions Recorded Confirmed Type acetaminophen 500 mg tablet 1,000 mg PO BID 07/25/19 03/03/21 History aspirin 81 mg tablet,delayed 81 mg PO DAILY 07/25/19 03/03/21 History release cholecalciferol (vitamin D3) 50 2,000 unit PO DAILY 07/25/19 03/03/21 History mcg (2,000 unit) tablet mecobalamin (vitamin B12) 1,000 1,000 mcg SUBLINGUAL DAILY 07/25/19 03/03/21 History mcg disintegrating tablet,sublingual pantoprazole 40 mg tablet,delayed 40 mg PO QAM 07/25/19 03/03/21 Hist
== END 2021-03-04 16:09 ==
LOC: ANHED 13:58 → ANH3MEDSUR 14:58
PROVIDERS: Nurse Practitioner; Physician Assistant; Admitting Provider Family Medicine; Emergency Provider Emergency Medicine; PCP Internal Medicine; Visit Provider Family Medicine
DX: D64.9 Anemia, unspecified (principal); R53.83 Other fatigue; R60.0 Localized edema; F41.8 Other specified anxiety disorders; K21.9 Gastro-esophageal reflux disease without esophagitis; I10 Essential (primary) hypertension; Z79.82 Long term (current) use of aspirin
CPT/HCPCS: 36415; 36430; 80048; 80053; 82607; 82728; 82746; 83540; 83550; 83735; 84443; 85014; 85018; 85025; 85027; 85046; 86850; 86900; 86901; 86920; 93970; 96374; 99285; A9270; G0378; J1756; J7050; P9016

== ENCOUNTER 2021-03-30 05:56 | Outpatient (CLI) | payer MEDICARE, OTHER, SELFPAY ==
[2021-03-18 16:06] VITALS: BMI 44.5
--- NOTE | 2021-03-30 06:44 | SUR.OPER ---
Patient brought to GI Lab. Instructions for patient undergoing Capsule Endoscopy reviewed with patient. Consent form signed. Sensor array applied to patient's abdomen and connected to recorded. Patient swallowed capsule with 16 ozs of water infused with Simethicone. Patient instructed they may have clear liquids at 0835 this AM and eat or drink at 1035 this AM. Patient instructed to return to GI Lab at 1500 this afternoon for removal of recording device and to call [phone] or to return to the hospital if any nausea and vomiting or abdominal pain is experienced. Patient also advised to periodically monitor the flashing blue light on the receiving equipment and to call the hospital if no longer flashing. Patient provided with script for follow up KUB on 04/01/[address] Edgar Ricks.
--- NOTE | 2021-03-30 15:25 | SUR.PHASEII ---
Patient returned to the GI Lab at 15:00 for recorder box removal. Patient voiced no complaints. States they have understanding of instructions. Patient left ambulatory.
== END 2021-03-30 05:57 | disposition home or self-care (01) ==
LOC: ANHENDO 05:57
PROVIDERS: PCP Internal Medicine; Visit Provider Internal Medicine Gastroenterology
PROC: 0DJ07ZZ Inspection of Upper Intestinal Tract, Via Natural or Artificial Opening (ICD-10-PCS; CPT 91110; principal; 2021-03-30 07:00)
DX: D64.9 Anemia, unspecified (principal)
CPT/HCPCS: 91110

== ENCOUNTER 2021-04-01 14:14 | Outpatient (CLI) | payer MEDICARE, OTHER, SELFPAY ==
--- NOTE | ~2021-04-01 | XR_ITS ---
EXAMINATION: XR abdomen/kub 1V INDICATION: Evaluation of ingested capsule TECHNIQUE: Supine views of the abdomen were obtained on 2 radiographs. COMPARISON: None FINDINGS: No enteric foreign body is identified. There is a moderate volume of colonic stool. No dila yadira loops of bowel are evident. There is lumbar dextroscoliosis and severe spondylosis. The visualize d lung bases are clear. There is antegrade intramedullary tracy and interlocking intratrochanteric scre w fixation of the left femur. Moderate bilateral hip osteoarthritis is noted. IMPRESSION: 1. No ingested capsule identified. Reviewed, dictated and finalized at location B.
== END 2021-04-01 14:15 | disposition home or self-care (01) ==
LOC: ANHIMG 14:21
PROVIDERS: PCP Internal Medicine; Visit Provider Internal Medicine Gastroenterology
DX: D64.9 Anemia, unspecified (principal); M47.816 Spondylosis without myelopathy or radiculopathy, lumbar region
CPT/HCPCS: 74018

== ENCOUNTER 2021-04-13 15:20 | Outpatient (CLI) | payer MEDICARE, OTHER, SELFPAY ==
[2021-04-13 16:17] LABS: Basophils Absolute Auto 0.1 K/mm3 (0.0-0.1); Basophils Percent Auto 0.9 % (0.2-1.2); Eosinophils Absolute Auto 0.2 K/mm3 (0-0.3); Eosinophils Percent Auto 3.1 % (0-4.4); Hematocrit 36.9 % (37.0-47.0); Hemoglobin 11.6 g/dL (12.0-15.0); Immature Granulocyte Absolute 0.01 K/mm3 (0.00-0.031); Immature Granulocyte Percent A 0.2 % (0-0.5); Lymphocytes Absolute Auto 1.49 K/mm3 (0.9-3.2); Lymphocytes Percent Auto 27.2 % (18.3-44.2); Mean Corpuscular HGB Conc 31.4 g/dl (32-36); Mean Corpuscular Hemoglobin 30.9 pg (26-34); Mean Corpuscular Volume 98.1 fl (80-100); Mean Platelet Volume 10.4 fl (7.4-10.4); Monocytes Absolute Auto 0.6 K/mm3 (0.1-0.6); Monocytes Percent Auto 10.2 % (2.6-8.5); Neutrophils Absolute Auto 3.2 K/mm3 (1.3-6.7); Neutrophils Percent Auto 58.4 % (45.5-73.1); Platelet Count Result 244 k/mm3 (150-375); Red Blood Count 3.76 M/mm3 (4.2-5.4); White Blood Count 5.5 K/mm3 (4.5-10.0)
[2021-04-13 17:12] LABS: Alanine Aminotransferase 17 U/L (4-35); Albumin Level 4.2 g/dL (3.5-5.1); Alkaline Phosphatase 63 U/L (38-126); Anion Gap 10 mmol/L (8-16); Aspartate Amino Transferase 33 U/L (14-36); Bilirubin,Total 0.4 mg/dL (0.2-1.3); Blood Urea Nitrogen 17 mg/dL (7-17); Calcium 9.6 mg/dL (8.4-10.2); Carbon Dioxide 25 mmol/L (22-30); Chloride 102 mmol/L (98-107); Estimated Glomerular Filt Rate > 60; Glucose 104 mg/dL (65-110); Potassium 4.5 mmol/L (3.4-5.0); Sodium 137 mmol/L (137-145)
[2021-04-13 17:16] LABS: Iron 56 ug/dL (37-170)
[2021-04-13 17:31] LABS: Percent Iron Saturation 19 % (20-50)
[2021-04-13 18:44] LABS: Folic Acid > 20.0 ng/mL (2.76->20)
== END 2021-04-13 15:21 | disposition home or self-care (01) ==
LOC: ANHLAB 15:23
PROVIDERS: PCP Internal Medicine; Visit Provider Internal Medicine Hematology & Oncology
DX: D64.9 Anemia, unspecified (principal)
CPT/HCPCS: 36415; 80053; 82607; 82728; 82746; 83540; 83550; 85025

== ENCOUNTER 2021-06-15 11:00 | Outpatient (CLI) | payer MEDICARE, OTHER, SELFPAY ==
[2021-06-15 11:30] LABS: Basophils Absolute Auto 0.1 K/mm3 (0.0-0.1); Basophils Percent Auto 0.6 % (0.2-1.2); Eosinophils Absolute Auto 0.2 K/mm3 (0-0.3); Eosinophils Percent Auto 1.7 % (0-4.4); Hematocrit 44.7 % (37.0-47.0); Hemoglobin 14.2 g/dL (12.0-15.0); Immature Granulocyte Absolute 0.03 K/mm3 (0.00-0.031); Immature Granulocyte Percent A 0.3 % (0-0.5); Lymphocytes Absolute Auto 1.24 K/mm3 (0.9-3.2); Lymphocytes Percent Auto 13.4 % (18.3-44.2); Mean Corpuscular HGB Conc 31.8 g/dl (32-36); Mean Corpuscular Hemoglobin 33.7 pg (26-34); Mean Corpuscular Volume 106.2 fl (80-100); Mean Platelet Volume 10.6 fl (7.4-10.4); Monocytes Absolute Auto 0.6 K/mm3 (0.1-0.6); Monocytes Percent Auto 6.5 % (2.6-8.5); Neutrophils Absolute Auto 7.2 K/mm3 (1.3-6.7); Neutrophils Percent Auto 77.5 % (45.5-73.1); Platelet Count Result 190 k/mm3 (150-375); Red Blood Count 4.21 M/mm3 (4.2-5.4); Red Cell Distribution Width 12.8 % (11.5-14.5); White Blood Count 9.3 K/mm3 (4.5-10.0)
[2021-06-15 11:44] LABS: Alanine Aminotransferase 19 U/L (4-35); Albumin Level 4.2 g/dL (3.5-5.1); Alkaline Phosphatase 62 U/L (38-126); Anion Gap 7 mmol/L (8-16); Aspartate Amino Transferase 24 U/L (14-36); Bilirubin,Total 0.5 mg/dL (0.2-1.3); Blood Urea Nitrogen 21 mg/dL (7-17); Calcium 9.3 mg/dL (8.4-10.2); Carbon Dioxide 26 mmol/L (22-30); Chloride 104 mmol/L (98-107); Cholesterol 175 mg/dL (0-200); Estimated Glomerular Filt Rate > 60; Glucose 111 mg/dL (65-110); HDL Direct 51 mg/dL; Potassium 4.1 mmol/L (3.4-5.0); Sodium 137 mmol/L (137-145); Triglycerides 107 mg/dL (<150)
[2021-06-15 11:46] LABS: Hemoglobin A1C 5.2 % (<5.7)
[2021-06-15 11:56] LABS: LDL Cholesterol Direct 104 mg/dL
[2021-06-15 12:16] LABS: Thyroid Stimulating Hormone 0.602 uIU/mL (0.465-4.680)
[2021-06-15 12:44] LABS: Vitamin D 25 Hydroxy 55.9 ng/mL
== END 2021-06-15 11:01 | disposition home or self-care (01) ==
PROVIDERS: PCP Internal Medicine; Visit Provider Internal Medicine
DX: I10 Essential (primary) hypertension (principal); Z13.220 Encounter for screening for lipoid disorders; E55.9 Vitamin D deficiency, unspecified; Z79.899 Other long term (current) drug therapy; R94.6 Abnormal results of thyroid function studies
CPT/HCPCS: 36415; 80053; 80061; 82306; 83036; 84443; 85025

== ENCOUNTER 2021-07-27 13:23 | Outpatient (CLI) | payer MEDICARE, OTHER, SELFPAY ==
[2021-07-27 13:48] LABS: Basophils Absolute Auto 0.1 K/mm3 (0.0-0.1); Basophils Percent Auto 0.6 % (0.2-1.2); Eosinophils Absolute Auto 0.1 K/mm3 (0-0.3); Eosinophils Percent Auto 1.7 % (0-4.4); Hematocrit 44.1 % (37.0-47.0); Hemoglobin 14.3 g/dL (12.0-15.0); Immature Granulocyte Absolute 0.02 K/mm3 (0.00-0.031); Immature Granulocyte Percent A 0.2 % (0-0.5); Lymphocytes Absolute Auto 1.65 K/mm3 (0.9-3.2); Lymphocytes Percent Auto 20.2 % (18.3-44.2); Mean Corpuscular HGB Conc 32.4 g/dl (32-36); Mean Corpuscular Hemoglobin 33.3 pg (26-34); Mean Corpuscular Volume 102.6 fl (80-100); Mean Platelet Volume 11.1 fl (7.4-10.4); Monocytes Absolute Auto 0.6 K/mm3 (0.1-0.6); Monocytes Percent Auto 7.8 % (2.6-8.5); Neutrophils Absolute Auto 5.7 K/mm3 (1.3-6.7); Neutrophils Percent Auto 69.5 % (45.5-73.1); Platelet Count Result 159 k/mm3 (150-375); Red Cell Distribution Width 12.7 % (11.5-14.5); White Blood Count 8.2 K/mm3 (4.5-10.0)
[2021-07-27 13:57] LABS: Blood Urea Nitrogen 16 mg/dL (8-26); Carbon Dioxide 24 mmol/L (22-30); Chloride 103 mmol/L (98-109); Estimated Glomerular Filt Rate > 60; Glucose 136 mg/dL (70-105); Sodium 140 mmol/L (138-146)
[2021-07-27 16:39] LABS: Iron 72 ug/dL (37-170)
[2021-07-27 16:58] LABS: Percent Iron Saturation 27 % (20-50)
[2021-07-27 18:08] LABS: Folic Acid > 20.0 ng/mL (2.76->20); Vitamin B12 > 1000.0 pg/mL (239-931)
== END 2021-07-27 13:24 | disposition home or self-care (01) ==
PROVIDERS: PCP Internal Medicine; Visit Provider Internal Medicine Hematology & Oncology
DX: D64.9 Anemia, unspecified (principal)
CPT/HCPCS: 36415; 80048; 82607; 82728; 82746; 83540; 83550; 85025

== ENCOUNTER 2021-08-03 11:31 | Observation (INO) | payer MEDICARE, OTHER, SELFPAY ==
[2021-08-03] VITALS (7 sets, daily range): BP systolic 98–137; BP diastolic 56–81; PULSE 72–82; RESP 16–20; TEMP 36.6–37.2; O2SAT 95–98
--- NOTE | 2021-08-03 | ECG_ITS ---
Measurements Intervals [place] Rate: 68 P: 34 FL: 128 QRS: 48 QRSD: 138 T: 24 QT: 410 QTc: 439 Interpretive Statements SINUS RHYTHM RIGHT BUNDLE BRANCH BLOCK BASELINE ARTIFACT- I, II, III, AVR, AVL, AVF, V1-V6 ABNORMAL ECG Electronically Signed On 08-03-2021 14:01:21 CERTIFIED MEDICAL BILLER by Orion Lawton D.O.
--- NOTE | 2021-08-03 | ECHO_ITS ---
Patient Info Name: Hoa Luis Age: 76 years : 1945 Gender: Female Ht: 59 in Wt: 214 lbs BSA: 2.07 m2 HR: 81 bpm BP: 137 / 81 mmHg Technical Quality: Fair Exam Date: 08/03/2021 2:59 PM Exam Location: [facility] Pulmonary Exam Room: [facility] Patient Status: Outpatient Admit Date: 08/03/2021 Staff Ordering Physician: Darlene Salomon NP Digital Marketing Program Manager: FEDERICO Attending Provider: Raulito Pate MD Referring Physician: Umm SHERIDAN; Exam Type: CA echo doppler w bubble study Study Info Indications - tia Complete two-dimensional, color flow and Doppler transthoracic echocardiogram is performed with agitated saline. Contrast/Agitated Saline Contrast/Ag. Saline: Agitated Saline Amount: 20.00 ml Summary 1. Left ventricular chamber dimension is normal. 2. Left ventricular systolic function is normal, estimated at 60-65%. 3. The left ventricular diastolic function is grade I diastolic dysfunction. 4. E/e' 11 is mildly elevated. 5. Left atrial chamber dimension is mildly enlarged. 6. There is mild aortic valve sclerosis. 7. The mitral valve has mildly calcified annulus. 8. There is moderate tricuspid valve regurgitation. 9. No pulmonary hypertension, estimated pulmonary arterial systolic pressure is 39 mmHg. Left Ventricle E/e' 11 is mildly elevated. Left ventricular chamber dimension is normal. Left ventricular systolic function is normal, estimated at 60-65%. The left ventricular diastolic function is grade I diastolic dysfunction. Right Ventricle Right ventricular systolic function is normal and with normal TAPSE 1.8 cm. Right ventricular chamber dimension is normal. Left Atria Left atrial chamber dimension is mildly enlarged. Right Atria Right atrial chamber dimension is normal. Atrial Septum Agitated saline injection opacified right cardiac chambers without shunt to left cardiac chambers. Intact interatrial septum visualized by agitated saline imaging. Aortic Valve The aortic valve is trileaflet. There is mild aortic valve sclerosis. There is no aortic valve stenosis. There is no aortic valve regurgitation. Pulmonic Valve There is no pulmonic regurgitation. Mitral Valve The mitral valve has mildly calcified annulus. There is no mitral valve stenosis. There is no mitral valve regurgitation. Tricuspid Valve There is moderate tricuspid valve regurgitation. No pulmonary hypertension, estimated pulmonary arterial systolic pressure is 39 mmHg. Pericardium/Pleural There is no pericardial effusion. Inferior Vena Cava Normal inferior vena cava with >50% collapse upon inspiration consistent with normal right atrial pressure, 5 mmHg. Aorta The aortic root size at the sinus of Valsalva is normal. Left Ventricular Outflow Tract Name Value Normal LVOT 2D LVOT Diameter 1.8 cm LVOT Doppler LVOT Peak Gradient 4 mmHg LVOT Mean Gradient 2 mmHg LVOT VTI 21 cm LVOT VTI/AV VTI Ratio 0.6 L
--- NOTE | ~2021-08-03 | XR_ITS ---
EXAMINATION: XR chest 1V DATE: 08/03/2021 11:50 INDICATION: Transient ischemic attack. Speech deficit. TECHNIQUE: A single frontal view of the chest was obtained. COMPARISON: Chest single view 03/31/2011, CT abdomen and pelvis 05/29/2020 FINDINGS: There is a large hiatal hernia. There is mild atelectasis in the lower lung zones. No pleur al effusion or pneumothorax. The heart size is normal. There are changes of posterior fusion procedur e in cervicothoracic spine. IMPRESSION: 1. Mild atelectasis in the lower lung zones. 2. Large hiatal hernia. Reviewed, dictated and finalized at location B. N SERVICES CASE MANAGER
--- NOTE | ~2021-08-03 | MR_ITS ---
EXAMINATION: MR brain/brain stem wo/w con EXAM DATE: 08/04/2021 08:34 INDICATION: Transient ischemic attack. Aphasia. TECHNIQUE: Magnetic resonance imaging (MRI) of the brain/brain stem obtained without contrast. Sagit amy T1, axial diffusion, gradient echo (T2*), T1, T2, FLAIR sequences obtained. Patient was then inj ected with 19 cc intravenous Multihance contrast. Axial and coronal postcontrast T1 weighted sequence s obtained. Correlation is made to head CT from yesterday. FINDINGS: There are no areas of restricted diffusion to suggest acute infarction. There is no acute hemorrhage seen on the T2*, a hemosiderin sensitive sequence. No intraparenchymal brain mass lesion. There is mild periventricular and subcortical T2/FLAIR signal hyperintensity, nonspecific but probab ly related to small vessel ischemic disease (microangiopathy). There is mild to moderate prominence of the sulci and ventricles related to cerebral atrophy. There are no extra-axial collections. Fl ow voids are seen in the cerebral arteries on the T2-weighted sequences consistent with their expecte d patency. Patient has had bilateral ocular lens surgery. Soft tissue is unremarkable. IMPRESSION: 1. No acute intracranial findings. 2. Chronic age related findings. Reviewed, dictated and finalized at location A. ENER TECHNOLOGIST
--- NOTE | ~2021-08-03 | CT_ITS ---
EXAMINATION: CT brain wo con EXAM DATE: 08/03/2021 11:46 INDICATION: TIA. Difficulty Speaking. TECHNIQUE: Spiral CT of the head was performed without contrast. Axial, coronal and sagittal images were reviewed. The dose-length product (DLP) for this examination was 605.33 mGy-cm. The exposure w as tailored according to patient size, and iterative reconstruction (ASIR) was used as additional dos e reduction technique. There is no prior study for comparison. FINDINGS: There is no acute intraparenchymal hemorrhage. No evidence of intraparenchymal brain mass lesion. No evidence of acute infarction. Please note that initial head CT has limited sensitivity f or small or acute infarctions. There is mild periventricular and subcortical hypodensity, nonspecifi c but probably related to small vessel ischemic disease. There is moderate prominence of the sulci and ventricles related to cerebral atrophy. There is intracranial carotid arteriosclerosis. There are no extra-axial collections. There is no mass effect or midline shift. Patient has had bilateral ocular lens surgery. Soft tissue is unremarkable. The visualized sinuses and mastoid air cells are well aerated. IMPRESSION: 1. No acute intracranial findings. 2. Chronic age related findings. Reviewed, dictated and finalized at location A. ICAL DEPENDENCY THERAPIST
--- NOTE | ~2021-08-03 | US_ITS ---
EXAMINATION: US carotid duplex BI DATE: 08/03/2021 16:38 INDICATION: Speech deficit. Transient ischemic attack. TECHNIQUE: Grayscale, color Doppler, and pulsed Doppler images of the cervical carotid arteries were obtained. The degree of vessel stenosis is placed in one of the following categories: normal, <50%, 5 0-69%, >=70% but less than near-occlusion, near-occlusion, or total occlusion. Note that percent sten osis relative to normal distal artery lumen diameter is indirectly measured from velocity measurement s as described by Heraclio, et al. Radiology 2003; 229:340-346. COMPARISON: None. FINDINGS: RIGHT: The right common carotid artery (CCA) peak systolic velocity (PSV) is 89 cm/s. The right internal car otid artery (ICA) PSV is 69 cm/s. The right ICA end-diastolic velocity (EDV) is 18 cm/s. The right IC A/CCA PSV ratio is 0.8. Grayscale and color Doppler images yield an estimate of <50% diameter reducti on from plaque in the ICA. There is antegrade flow in the right vertebral artery. LEFT: The left CCA PSV is 67 cm/s. The left ICA PSV is 75 cm/s. The left ICA EDV is 10 cm/s. The left ICA/C CA PSV ratio is 1.1. Grayscale and color Doppler images yield an estimate of <50% diameter reduction from plaque in the ICA. There is antegrade flow in the left vertebral artery. IMPRESSION: 1. <50% stenosis in the right internal carotid artery. 2. <50% stenosis in the left internal carotid artery. Reviewed, dictated and finalized at location B. REST BUILDER
--- NOTE | 2021-08-03 11:31 | ED.NEUROSD ---
HPI - Neuro Symptoms/Deficit General Chief Complaint: Suspected CVA Stated Complaint: diff talking Source: patient, EMS, RN notes reviewed and old records reviewed Mode of arrival: EMS Limitations: no limitations History of Present Illness HPI Narrative: At 10 AM patient noticed inability to talk while talking to her , difficulty to find words, slurred speech, lasted for 20 minutes then resolved. Currently patient is asymptomatic. Patient brought to the emergency room [facility]. History of hypertension, does not take any blood thinner including antiplatelets like aspirin. Patient does not smoke or drink. Related Data Home Medications Medication Instructions Recorded Confirmed cholecalciferol (vitamin D3) 50 2,000 unit PO DAILY 07/25/19 06/15/21 mcg (2,000 unit) tablet pantoprazole 40 mg tablet,delayed 40 mg PO QAM 07/25/19 06/15/21 release raloxifene 60 mg tablet 60 mg PO DAILY 07/25/19 06/15/21 losartan 50 mg tablet 50 mg PO DAILY 11/12/19 06/15/21 docusate sodium 100 mg capsule 100 mg PO BID PRN 02/18/20 06/15/21 multivitamin 1 tablet PO DAILY 02/18/20 06/15/21 sennosides 8.6 mg tablet 8.6 mg PO BID PRN 02/18/20 06/15/21 buspirone 5 mg tablet 5 mg PO BID tablet 08/25/20 06/15/21 escitalopram oxalate 20 mg tablet 20 mg PO DAILY tablet 08/25/20 06/15/21 spironolactone 50 mg tablet 50 mg PO DAILY tablet 08/25/20 06/15/21 acetaminophen 650 mg PO Q4H PRN 01/13/21 06/15/21 calcium carbonate-vitamin D3 1 tablet PO DAILY 01/13/21 06/15/21 [Calcium 500 + D] ferrous sulfate 325 mg (65 mg 650 mg PO BID tablet 06/15/21 06/15/21 iron) tablet benzonatate mg PO 08/03/21 cyanocobalamin (vitamin B-12) 1,000 mcg PO DAILY 08/03/21 08/03/21 ondansetron HCl 08/03/21 Allergies Allergy/AdvReac Type Severity Reaction Status Date / Time adhesive tape Allergy Severe BLISTER Verified 08/03/21 11:40 SKIN adhesive Allergy Unknown Erythema Verified 08/03/21 11:40 cyclobenzaprine Allergy Unknown Verified 08/03/21 11:40 Review of Systems Review of Systems: CONSTITUTIONAL: Denies fever, chills, or sweats. EYES: Denies visual changes, redness, or discharge. ENT: Denies rhinorrhea, congestion, sore throat, or otalgia. CARDIOVASCULAR: Denies chest pain, palpitations, or edema. RESPIRATORY: Denies cough or dyspnea. GASTROINTESTINAL: Denies abdominal pain, nausea, vomiting, or diarrhea. GENITOURINARY: Denies dysuria or hematuria. SKIN: Denies rash or itching. MUSCULOSKELETAL: Denies back pain, joint pain, or myalgia. NEUROLOGIC: Denies headache, numbness, or weakness. PSYCHIATRIC: Denies anxiety or depression. [facility] Past Medical History Medical History Abnormal finding of blood chemistry, unspecified Abnormal thyroid function test Anemia Anemia Anxiety Anxiety with depression Benign essential hypertension Body mass index (BMI) 40.0-44.9, adult Chronic pain of left knee Chronic pain of right knee Closed hip fracture requiring operative repair Left femur Dependent edema Depression DJD (degenerative joint disease), multiple sites Encounter for examination for admission to assisted living facility Encounter for Medicare annual wellness exam Encounter for routine adult health examination with abnormal findings Encounter for routine adult health examination without abnormal findings Failed total knee arthroplasty Follow up GERD (gastroesophageal reflux disease) Hearing loss Hx of breast cancer Hypersomnolence Instability of internal right knee prosthesis Left knee DJD Muscle weakness Nocturia Obesity On intermodal dispatcher drug therapy Osteopenia Patellar tendon rupture Pedal edema RBBB (right bundle branch block) Right knee pain Rotator cuff injury Tibia fracture Pinning of right tibia Urinary urgency Vitamin B12 deficiency Vitamin D deficiency Surgical History Surgical History H/O breast biopsy
[2021-08-03 12:25] LABS: Basophils Percent Auto 0.6 % (0.2-1.2); Eosinophils Absolute Auto 0.1 K/mm3 (0-0.3); Eosinophils Percent Auto 1.6 % (0-4.4); Hemoglobin 13.6 g/dL (12.0-15.0); Immature Granulocyte Absolute 0.01 K/mm3 (0.00-0.031); Immature Granulocyte Percent A 0.2 % (0-0.5); Lymphocytes Absolute Auto 1.23 K/mm3 (0.9-3.2); Lymphocytes Percent Auto 19.8 % (18.3-44.2); Mean Corpuscular Hemoglobin 34.3 pg (26-34); Mean Corpuscular Volume 100.8 fl (80-100); Mean Platelet Volume 9.9 fl (7.4-10.4); Monocytes Absolute Auto 0.5 K/mm3 (0.1-0.6); Neutrophils Absolute Auto 4.3 K/mm3 (1.3-6.7); Neutrophils Percent Auto 69.8 % (45.5-73.1); Platelet Count Result 196 k/mm3 (150-375); Red Blood Count 3.97 M/mm3 (4.2-5.4); Red Cell Distribution Width 12.7 % (11.5-14.5); White Blood Count 6.2 K/mm3 (4.5-10.0)
[2021-08-03 12:35] LABS: INR 1.1; Prothrombin Time 13.6 Seconds (11.1-14.7)
[2021-08-03] MEDS: ASPIRIN 325 MG TABLET PO (12:36)
[2021-08-03 12:38] LABS: Alanine Aminotransferase 18 U/L (4-35); Albumin Level 4.1 g/dL (3.5-5.1); Alkaline Phosphatase 53 U/L (38-126); Anion Gap 6 mmol/L (8-16); Aspartate Amino Transferase 26 U/L (14-36); Bilirubin,Total 0.4 mg/dL (0.2-1.3); Blood Urea Nitrogen 16 mg/dL (7-17); Calcium 9.7 mg/dL (8.4-10.2); Carbon Dioxide 30 mmol/L (22-30); Chloride 101 mmol/L (98-107); Estimated Glomerular Filt Rate > 60; Glucose 117 mg/dL (65-110); Potassium 4.3 mmol/L (3.4-5.0); Sodium 137 mmol/L (137-145)
[2021-08-03 12:47] LABS: Troponin I < 0.012 ng/mL (0.000-0.034)
--- NOTE | 2021-08-03 14:50 | ADMGEN ---
This patient, Hoa Luis, was admitted to 3 Med Surg Room 314-02. Patient/family oriented to hospital policies and general routines including ID bracelet, bed and alarms, visiting hours, pain management, procedures, bathroom and other care routines, personal items, smoking policy, room service/diet, and visiting hours. Information on how to activate the Rapid Response Team has been discussed. Patient/Family are encouraged to report perceived risks to care and to ask questions if they do not understand what they are told or what they should do.
--- NOTE | 2021-08-03 15:07 | PM.IMHP ---
H&P: HPI History of Present Illness Date/Time: 08/03/21 15:07 this is a 76-year-old female patient who resides at [facility] due to her inability to walk. The patient has a history of having a knee replacement and ruptured her tendon on the right side. She had the right knee tendon repaired but it ruptured again. The patient is chronically in a wheelchair. However today she was having difficulty talking. She could not find the words and she had a slurred speech that lasted approximately 20 minutes. When the patient came to the emergency room she was asymptomatic. She is speaking in full sentences and answering questions without difficulty. Head CT was read as no acute intracranial findings. Chronic age-related findings. Chest x-ray was read as mild atelectasis in the lower lung zones. Large hiatal hernia. The patient was given an aspirin in the emergency room. Neurology has been consulted. The patient is being admitted for observation status on the date of service 08/03/2021. Chief Complaint: Difficulty speaking Review of Systems Review of Systems: All systems reviewed & are unremarkable except as noted in HPI and below Constitutional: Constitutional: Reports as per HPI and Reports no additional constitutional complaints Eyes: Eyes: Reports as per HPI and Reports no additional eye complaints ENT: Reports system reviewed and no additional complaints, except as documented and Reports Normal hearing present Cardiovascular: Cardiovascular: Reports no additional cardiovascular complaints Respiratory: Respiratory: Reports no additional respiratory complaints and Reports no additional respiratory complaints Gastrointestinal: Gastrointestinal: Reports as per HPI and Reports no additional gastrointestinal complaints Musculoskeletal: Musculoskeletal: Reports no additional musculoskeletal complaints Integumentary/Breasts: Skin/Breast: Reports system reviewed and no additional complaints, except as docu and Reports as per HPI Neurologic: Reports system reviewed and no additional complaints, except as documented, Reports as per HPI and Reports Normal hearing present Psychiatric: Psychiatric: Reports no additional psychiatric complaints and Reports as per HPI Endocrine: Endocrine: Reports no additional endocrine complaints Hematologic/Lymphatic: Hematologic/Lymphatic: Reports no additional hematologic/lymphatic complaints Allergic/Immunologic: Allergic/Immunologic: Reports no additional allergic/immunologic complaints [facility] Past Medical History Medical History (Updated 08/03/21 @ 15:12 by Darlene Salomon NP) Abnormal finding of blood chemistry, unspecified Abnormal thyroid function test Anemia Anxiety Anxiety with depression Benign essential hypertension Body mass index (BMI) 40.0-44.9, adult Chronic pain of left knee Chronic pain of right knee Closed hip fracture requiring operative repair Left femur Dependent edema Depression DJD (degenerative joint disease), multiple sites Encounter for examination for admission to assisted living facility Encounter for Medicare annual wellness exam Encounter for routine adult health examination with abnormal findings Encounter for routine adult health examination without abnormal findings Failed total knee arthroplasty Follow up GERD (gastroesophageal reflux disease) Hearing loss Hx of breast cancer The patient had a lumpectomy and radiation treatment Hypersomnolence 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
--- NOTE | 2021-08-03 15:13 | WPDNEURCNPN ---
Assessment and Plan Additional Plan 1. TIA patient has been continued on aspirin echo has been ordered 2. Chronic weakness of the lower extremities related to her right tendon rupture and also rotator cuff tear in the left shoulder limiting her movements her medications will be continued as such, brain MRI has not documented any new stroke just ruling out the possibility of small vessel disease with lacunar stroke at present and Doppler studies of the carotid are also normal additionally she has a large hiatal hernia with is status post fusion of the spine Consult date: 08/04/21 HPI: Hoa Luis is a 76 year old female has been admitted to [facility] through the emergency room for the complaints of difficulties in conversation since 10:00 a.m. while communicating with her she had difficulty in finding the right word her speech was slurred and the whole episode lasted for 20 minutes then completely resolved by the time she came to the emergency room she was back to normal she was [facility] additionally she has ongoing history of 1. Hypertension 2. No smoking 3. No drinking 4. Taking multiple medication as outlined. His studies up until now included a CT scan of the head which revealed no evidence of bleed, x-ray chest with a large hiatal hernia and mild atelectasis in the lower lung zones, EKG with right bundle branch block in normal sinus rhythm, and admission diagnosis is TIA, additionally patient has history of severe generalized weakness with rotator cuff injury and failed total knee arthroplasty with instability of right knee prosthesis and she is unable to transfer from bed to chair and back up from chair to car and back on aided Review of Systems Review of Systems: All systems reviewed & are unremarkable except as noted in HPI and below PMFSH Past Medical History Medical History Abnormal finding of blood chemistry, unspecified Abnormal thyroid function test Anemia Anxiety Anxiety with depression Benign essential hypertension Body mass index (BMI) 40.0-44.9, adult Chronic pain of left knee Chronic pain of right knee Closed hip fracture requiring operative repair Left femur Dependent edema Depression DJD (degenerative joint disease), multiple sites Encounter for examination for admission to assisted living facility Encounter for Medicare annual wellness exam Encounter for routine adult health examination with abnormal findings Encounter for routine adult health examination without abnormal findings Failed total knee arthroplasty Follow up GERD (gastroesophageal reflux disease) Hearing loss Hx of breast cancer The patient had a lumpectomy and radiation treatment Hypersomnolence Instability of internal right knee prosthesis Left knee DJD Muscle weakness Muscle weakness-general Nocturia Obesity 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 Osteopenia Patellar tendon rupture Pedal edema RBBB (right bundle branch block) Right knee pain Rotator cuff injury Severe anemia Tibia fracture Pinning of right tibia Urinary urgency Vitamin B12 deficiency Vitamin D deficiency Surgical History Surgical History H/O breast biopsy H/O carpal tunnel repair Bilat H/O parathyroidectomy H/O: hysterectomy History of ankle surgery Right ankle fusion History of bladder surgery History of lumpectomy History of oophorectomy History of tonsillectomy History of total right knee replacement That was April of last year and patient continued to have difficulty in June of last year she was found have a tendon rupture which was repaired and it ruptured again. Patient is wheelchair-bound now. Hx of excision of lamina of cervical vertebra for decompression of spinal cord Family History Family History Grandparent Diabetes mellitus Family history of maligna
[2021-08-03] MEDS: FERROUS SULFATE 324 MG TABLET 648 MG PO (17:15)
[2021-08-03] MEDS: ALPRAZolam (*CRX) 0.25 MG TABLET PO (17:16)
[2021-08-03] MEDS: ACETAMINOPHEN 500 MG TABLET 1000 MG PO (21:12)
[2021-08-03] MEDS: busPIRone HCL 5 MG TABLET PO (21:13)
[2021-08-04] VITALS (7 sets, daily range): BP systolic 117–152; BP diastolic 51–97; PULSE 66–92; RESP 16–18; TEMP 36.4–36.7; O2SAT 94–97
[2021-08-04 06:38] LABS: Basophils Percent Auto 0.7 % (0.2-1.2); Eosinophils Absolute Auto 0.3 K/mm3 (0-0.3); Eosinophils Percent Auto 7.6 % (0-4.4); Hematocrit 40.3 % (37.0-47.0); Hemoglobin 13.6 g/dL (12.0-15.0); Immature Granulocyte Absolute 0.01 K/mm3 (0.00-0.031); Immature Granulocyte Percent A 0.2 % (0-0.5); Lymphocytes Absolute Auto 1.49 K/mm3 (0.9-3.2); Lymphocytes Percent Auto 33.2 % (18.3-44.2); Mean Corpuscular HGB Conc 33.7 g/dl (32-36); Mean Corpuscular Volume 100.8 fl (80-100); Mean Platelet Volume 10.2 fl (7.4-10.4); Monocytes Absolute Auto 0.4 K/mm3 (0.1-0.6); Monocytes Percent Auto 8.9 % (2.6-8.5); Neutrophils Absolute Auto 2.2 K/mm3 (1.3-6.7); Neutrophils Percent Auto 49.4 % (45.5-73.1); Platelet Count Result 192 k/mm3 (150-375); Red Cell Distribution Width 12.9 % (11.5-14.5); White Blood Count 4.5 K/mm3 (4.5-10.0)
[2021-08-04 06:47] LABS: Lactic Acid Reflex 1.1 mmol/L (0.7-2.1)
[2021-08-04 06:54] LABS: Lactate Dehydrogenase 468 U/L (313-618); Magnesium 1.8 mg/dL (1.6-2.3)
[2021-08-04] MEDS: LOSARTAN POTASSIUM 50 MG TABLET PO (09:04)
[2021-08-04] MEDS: PANTOPRAZOLE 40 MG TABLET PO (09:04)
[2021-08-04] MEDS: CHOLECALCIFEROL 1,000 UNITS TABLET 2000 UNITS PO (09:04)
[2021-08-04] MEDS: FERROUS SULFATE 324 MG TABLET 648 MG PO ×2 (09:04→17:15)
[2021-08-04] MEDS: CYANOCOBALAMIN 1,000 MCG TABLET 1000 MCG PO (09:04)
[2021-08-04] MEDS: ASPIRIN 81 MG CHEWABLE TABLET PO (09:04)
[2021-08-04] MEDS: SPIRONOLACTONE 50 MG TABLET PO (09:04)
[2021-08-04] MEDS: ACETAMINOPHEN 500 MG TABLET 1000 MG PO ×2 (09:05→20:33)
[2021-08-04] MEDS: RALOXIFENE HCL (*CHEMO) 60 MG TABLET PO (09:05)
[2021-08-04] MEDS: MULTIVITAMINS /C LUTEIN (CENTRUM SILVER) TABLET *BKC 1 TAB PO (09:05)
[2021-08-04] MEDS: ESCITALOPRAM OXALATE 10 MG TABLET 20 MG PO (09:05)
[2021-08-04] MEDS: polyethylene glycoL 3350 17 GM POWD.PACK PO (09:05)
[2021-08-04] MEDS: busPIRone HCL 5 MG TABLET PO ×2 (09:05→20:33)
[2021-08-04] MEDS: ALPRAZolam (*CRX) 0.25 MG TABLET PO ×2 (09:06→17:15)
[2021-08-04 11:05] LABS: Hemoglobin A1C 5.2 % (<5.7)
[2021-08-04 11:24] LABS: Thyroid Stimulating Hormone Reflex 0.895 uIU/mL (0.465-4.68)
--- NOTE | 2021-08-04 11:30 | PM.DS ---
DS: Admitting Diagnosis Discharge Date Date of service 08/04/2021 at 11 30 Admitting Diagnosis Trans ischemic attack DS: Discharge Diagnosis Discharge Diagnosis (1) Brain TIA: Code(s): G45.9 - Transient cerebral ischemic attack, unspecified Status: Acute Assessment and Plan: The patient was continued with an aspirin. An echo has been ordered for the patient. Neurology has been consulted. The patient's speech is clear and within normal limits. Most likely this is a TIA. The patient has chronic weakness to her right knee due to the tendon rupture. She is not able to lift her right knee up and this is chronic. Otherwise her neural so are intact. She also has a rotator cuff tear left shoulder and has difficulty moving the left arm as well. However her symptoms resolved briefly. Will start patient on Plavix and statin drug (2) Hx of breast cancer: Code(s): Z85.3 - Personal history of malignant neoplasm of breast Status: Acute Assessment and Plan: The patient has had radiation in the past and stated that her lymph node was clear around it. No further treatment. (3) Anxiety with depression: Code(s): F41.8 - Other specified anxiety disorders Status: Acute Assessment and Plan: The patient will continue with alprazolam. Continue with BuSpar (4) Anemia: Qualifiers: Anemia type: iron deficiency Iron deficiency anemia type: unspecified iron deficiency Qualified Code(s): D50.9 - Iron deficiency anemia, unspecified Code(s): D64.9 - Anemia, unspecified Status: Acute Assessment and Plan: H&H is within normal limits at this time. However the patient stated she has had blood transfusions in the past. She did have some internal hemorrhoids but she has had EGDs and colonoscopies in the past. They could not find any source of the bleeding. However and apparently has resolved on its own. (5) Depression: Code(s): F32.9 - Major depressive disorder, single episode, unspecified Status: Chronic Assessment and Plan: Continue with BuSpar and Lexapro (6) History of total right knee replacement: Code(s): Z96.651 - Presence of right artificial knee joint Status: Acute Assessment and Plan: Patient has chronic weakness to the right knee due to a tendon rupture. (7) Patellar tendon rupture: Qualifiers: Encounter type: sequela Laterality: right Qualified Code(s): S86.811S - Strain of other muscle(s) and tendon(s) at lower leg level, right leg, sequela Code(s): S86.819A - Strain of other muscle(s) and tendon(s) at lower leg level, unspecified leg, initial encounter Status: Acute Assessment and Plan: Chronic. Continue with home dose of tramadol (8) Overactive bladder: Code(s): N32.81 - Overactive bladder Status: Acute Assessment and Plan: Continue with home medications. DS: Summary Hospital Course Hospital Course: Patient is a 76-year-old female with a past medical history of knee replacement with tender rupture and failed repair, depression anxiety, breast cancer, hypertension, and anemia who presented to the ED for slurred speech. Head CT was negative in found normal aging brain, chest x-ray found atelectasis, carotid Doppler showed less than 50% stenosis, brain MRI showed normal aging brain as well. Neurology was consulted as well and recommend patient start Plavix continue aspirin and add a statin drug. Labs have been stable throughout the visit including H&H of 13.6 and 40.3 upon discharge. Patient is ready to go home and is excited about departing the hospital. She stated that she feels like herself and that she is over what ever happened to her. Patient denies chest pain, shortness of breath, weakness, fatigue, nausea, vomiting, abdominal pain, fever, sweats, chills. Status at Discharge Functional status at discharge: wheelchair bound Overall status at discharge: khalida
[2021-08-04 12:45] LABS: EDCOVIDSCREEN Negative (Negative)
[2021-08-04] MEDS: ATORVASTATIN 40 MG TABLET PO (13:22)
[2021-08-04] MEDS: CLOPIDOGREL BISULFATE 300 MG TABLET PO (13:22)
== END 2021-08-05 06:45 ==
LOC: ANHED 12:46 → ANH3MEDSUR 13:15
PROVIDERS: Nurse Practitioner; Admitting Provider Internal Medicine; Emergency Provider Emergency Medicine; PCP Internal Medicine; Visit Provider Internal Medicine
DX: R47.81 Slurred speech (principal); G45.9 Transient cerebral ischemic attack, unspecified; I10 Essential (primary) hypertension; F41.8 Other specified anxiety disorders; D50.9 Iron deficiency anemia, unspecified; N32.81 Overactive bladder; Z85.3 Personal history of malignant neoplasm of breast; Z96.651 Presence of right artificial knee joint; Z79.899 Other long term (current) drug therapy; Z20.822 Contact with and (suspected) exposure to COVID-19
CPT/HCPCS: 36415; 70450; 70553; 71045; 80053; 83036; 83605; 83615; 83735; 84443; 84484; 85025; 85610; 85730; 87426; 93005; 93306; 93880; 96375; 99285; A9270; A9577; C9803; G0378

== ENCOUNTER 2022-01-05 13:51 | Outpatient (CLI) | payer MEDICARE, OTHER, SELFPAY ==
--- NOTE | ~2022-01-05 | MM_ITS ---
EXAMINATION: MM screening arturo BI w durga HISTORY: Screening. Status post left lumpectomy for malignancy in 2015. Radiation therapy. TECHNIQUE: Craniocaudal and mediolateral oblique 3-D tomosynthesis images were obtained and synthetic 2-D images were generated. CAD analysis was submitted and interpreted. COMPARISON: Comparison to multiple prior studies sequentially, with oldest reviewed study dated 10/2014. BREAST PARENCHYMAL COMPOSITION: There are scattered areas of fibroglandular density. FINDINGS: There is focal asymmetry with architectural distortion and skin thickening in the upper out er quadrant of the left breast, likely related to previous lumpectomy and radiation therapy. The righ t breast is stable without evidence for malignancy. IMPRESSION: 1. Focal architectural distortion/asymmetry, upper outer quadrant of the left breast. 2. Additional mammographic views and possible breast ultrasound are recommended. BI-RADS Category 0: Incomplete: Needs additional imaging evaluation. Reviewed, dictated and finalized at location A. IMPRESSION: 1. Focal architectural distortion/asymmetry, upper outer quadrant of the left b reast. 2. Additional mammographic views and possible breast ultrasound are recommended . BI-RADS Category 0: Incomplete: Needs additional imaging evaluation.
== END 2022-01-05 13:52 | disposition home or self-care (01) ==
PROVIDERS: PCP Internal Medicine; Visit Provider Internal Medicine
DX: Z12.31 Encounter for screening mammogram for malignant neoplasm of breast (principal); R92.8 Other abnormal and inconclusive findings on diagnostic imaging of breast
CPT/HCPCS: 77063; 77067

== ENCOUNTER 2022-01-14 13:17 | Outpatient (CLI) | payer MEDICARE, OTHER, SELFPAY ==
--- NOTE | ~2022-01-14 | MM_ITS ---
EXAMINATION: MM diagnostic arturo LT w durga HISTORY: Focal architectural distortion/asymmetry at upper outer left breast TECHNIQUE: Additional 3-D tomosynthesis images of the left breast were performed and synthetic 2-D im ages were generated. CAD analysis was submitted and interpreted. COMPARISON: 01/05/2022, 03/31/2019, 02/25/2017 bilateral screening mammogram October 22, 2014 diagnostic left mammogram and limited left breast ultrasound BREAST PARENCHYMAL COMPOSITION: There are scattered areas of fibroglandular density. FINDINGS: Examination is limited due to patient condition. There is asymmetry in the posterior upper outer left breast. There is history of bilateral partial m astectomy for breast cancer. Differential diagnosis for the asymmetry includes postoperative change versus malignancy. Targeted upper outer quadrant left breast ultrasound is recommended. IMPRESSION: 1. Asymmetry, upper outer quadrant of left breast; limited mammogram examination due to patient condi tion 2. Targeted upper outer quadrant left breast ultrasound examination is recommended BI-RADS Category 0: Incomplete: Needs additional imaging evaluation. Reviewed, dictated and finalized at location A. IMPRESSION: 1. Asymmetry, upper outer quadrant of left breast; limited mammogram examinatio n due to patient condition 2. Targeted upper outer quadrant left breast ultrasound examination is recommen ded BI-RADS Category 0: Incomplete: Needs additional imaging evaluation.
== END 2022-01-14 13:18 | disposition home or self-care (01) ==
LOC: ANHIMG 13:18
PROVIDERS: PCP Internal Medicine; Visit Provider Internal Medicine
DX: R92.8 Other abnormal and inconclusive findings on diagnostic imaging of breast (principal)
CPT/HCPCS: 77061; 77065; G0279

== ENCOUNTER 2022-01-29 10:54 | Outpatient (CLI) | payer MEDICARE, OTHER, SELFPAY ==
--- NOTE | ~2022-01-29 | US_ITS ---
EXAMINATION: US breast LT limited HISTORY: Left breast asymmetry on screening mammogram TECHNIQUE: Limited high-resolution ultrasound is performed in the upper outer quadrant of the left br east. FINDINGS: No suspicious cystic or solid mass is identified. There is shadowing related to scarring at the lumpectomy site. No suspicious sonographic correlate is identified for the mammographic finding in question. IMPRESSION: No sonographic evidence of malignancy. Routine annual screening mammography is recommended. BI-RADS Category 2: Benign finding(s). Reviewed, dictated and finalized at location A.
== END 2022-01-29 10:55 | disposition home or self-care (01) ==
PROVIDERS: PCP Internal Medicine; Visit Provider Internal Medicine
DX: R92.8 Other abnormal and inconclusive findings on diagnostic imaging of breast (principal)
CPT/HCPCS: 76642